=== PATIENT | female | born 1940 | race Caucasian/White ===

== ENCOUNTER 2017-01-25 09:52 | Inpatient (IN) | payer MEDICARE, OTHER ==
[~2017-01-25 09:52] MED LIST: Ketorolac 30 MG/ML SDV IVPUSH PRN
--- NOTE | 2017-01-25 11:14 | EDM.PDOC ---
ED HPI GENERAL MEDICAL PROBLEM - General Chief Complaint: Abdominal Pain Stated Complaint: SOB Time Seen by Provider: 01/25/17 10:37 Source of Information: Reports: Patient, Family, RN Notes Reviewed History Limitations: Reports: No Limitations - History of Present Illness INITIAL COMMENTS - FREE TEXT/NARRATIVE: The patient states that she developed epigastric pain yesterday, which migrated to the right lower quadrant last night. It is crampy/burning/stabbing in character. She feels better if she is supine, worse if she is walking or coughing. She reports nonbloody diarrhea this morning, but no recent nausea, vomiting, constipation, or urinary symptoms. She has had a subjective fever and felt chills. She states that she took Tylenol around 16:30 yesterday afternoon, last night before going to bed, at 03:30 this morning, and again around 08:30 this morning. The patient has a history of generalized abdominal pain, but, based on her history, it is likely GERD-related, and different than her current symptoms. The patient's last oral solid food was yesterday morning, 01/24/2017. Her last oral liquid was water at 09:30 this morning. The patient's PCP is Dr. April Patel. 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 Middle Abdomen Pain Score (Numeric/FACES): 7 - Related Data Allergies Allergy/AdvReac Type Severity Reaction Status Date / Time oxycodone HCl [From Percocet] Allergy Hives Verified 01/25/17 09:59 Home Meds: Home Meds Hydrochlorothiazide 25 mg PO DAILY 02/14/15 [History] Lisinopril 10 mg PO DAILY 02/14/15 [History] Omeprazole 20 mg PO DAILY 02/14/15 [History] Omeprazole Magnesium [Prilosec Otc] 20 mg PO DAILY 01/25/17 [History] Past Medical History HEENT History: Reports: Impaired Vision Cardiovascular History: Reports: Hypertension Gastrointestinal History: Reports: Cholelithiasis, GERD (untreated), Hiatal Hernia, [employer] SPECIALIST History: Reports: Musculoskeletal History: Reports: Arthritis, Back Pain, Chronic (lumbar DDD) Endocrine/Metabolic History: Reports: Obesity/BMI 30+, Other (See Below) ( Prediabetes) - Past Surgical History HEENT Surgical History: Reports: Cataract Surgery, Oral Surgery (Dental extractions) Neurological Surgical History: Reports: Lumbar Spine (Discectomy and fusion) Musculoskeletal Surgical History: Reports: Hip Replacement (right) Social & Family History - Family History Cardiac: Reports: MA Oncologic: Reports: Colon, Ovarian - Tobacco Use Smoking Status *Q: Former Smoker Years of Tobacco use: 43 Packs/Tins Daily: 1 Packs/Tins Daily Comment: Quit 1999 Second Hand Smoke Exposure: No - Caffeine Use Caffeine Use: Reports: Coffee - Alcohol Use Alcohol Use History: Yes Alcohol Use Frequency: Socially - Recreational Drug Use Recreational Drug Use: No - Living Situation & Occupation Living situation: Reports: , with Spouse Occupation: Retired ED ROS GENERAL - Review of Systems Review Of Systems: See Below Constitutional: Reports: No Symptoms HEENT: Reports: No Symptoms Respiratory: Reports: No Symptoms Cardiovascular: Reports: No Symptoms Endocrine: Reports: No Symptoms GI/Abdominal: Reports: No Symptoms : Reports: No Symptoms Musculoskeletal: Reports: No Symptoms Skin: Reports: No Symptoms Neurological: Reports: No Symptoms Psychiatric: Reports: No Symptoms Hematologic/Lymphatic: Reports: No Symptoms Immunologic: Reports: No Symptoms ED EXAM, GI/ABD - Physical Exam Exam: See Below Exam Limited By: No Limitations General Appearance: Alert, WD/WN, No Apparent Distress Eyes: Bilateral: Normal Appearance, EOMI Ears: Normal External Exam, Hearing Grossly Normal Nose: Normal Inspection, No Blood Throat/Mouth: Normal Inspection, Normal Lips, Normal Voice, No Airway Compromise Head: Atraumatic, Normocephalic Neck: Normal Inspection, Full Range of Motion Respiratory/Chest: No Respiratory Distress, Lungs Clear, Normal Breath Sounds, No Accessory Muscle Use Cardiovascular: Normal Peripheral Pulses, Regular Rate, Rhythm, No Gallop, No JVD, No Murmur, No Rub GI/Abdominal Exam: Normal Bowel Sounds, Soft, No Organomegaly, No Distention, No Abnormal Bruit, No Mass, Tender (Right lower quadrant only. Essentially nontender elsewhere, however, Rovsing sign positive.), Other (Obese). No: Guarding, Rebound (Female) Exam: Deferred Rectal (Female) Exam: Deferred Back Exam: Normal Inspection, Full Range of Motion. No: CVA Tenderness (L), CVA Tenderness (R) Extremities: Normal Inspection, Normal Range of Motion, No Pedal Edema, Normal Capillary Refill Neurological: Alert, Oriented, Normal Cognition, No Motor/Sensory Deficits Psychiatric: Normal Affect Skin Exam: Warm, Dry, Intact, Normal Color, No Rash EKG INTERPRETATION EKG Date: 01/25/17 Time: 14:27 Rhythm: NSR Rate (Beats/Min): 86 [place]: Normal P-Wave: Present QRS: Normal ST-T: Normal QT: Prolonged (QTC 503 ms) Comparison: NA - No Prior EKG Course - Vital Signs Last Recorded V/S: Last Vital Signs Temp 36.2 C 01/25/17 09:59 Pulse 88 01/25/17 09:59 Resp 12 01/25/17 16:06 BP 147/70 H 01/25/17 09:59 Pulse Ox 98 01/25/17 16:06 - Orders/Labs/Meds Orders: Active Orders 24 hr Category Date Time Status Patient Status [ADT] Routine ADT 01/25/17 16:23 Active EKG 12 Lead [EKG Documentation Completion] [RC] URGENT Care 01/25/17 14:15 Active NPO Now [Nothing per Oral Now Diet] [DIET] Diet 01/25/17 Dinner Active Abdomen Pelvis w Cont [CT] Stat Exams 01/25/17 11:12 Taken NS + KCl 20mEq/L [Normal Saline with 20 mEq KCl] 1,000 Med 01/25/17 14:45 Active ml IV ASDIRECTED Sodium Chloride 0.9% [Normal Saline] 1,000 ml Med 01/25/17 11:15 Active IV ASDIRECTED Schedule Procedure [COMM] Timed Oth 01/25/17 17:00 Ordered Medication Orders Sodium Chloride (Normal Saline) 1,000 mls @ 150 mls/hr IV ASDIRECTED [facility] Last Admin: 01/25/17 11:28 Dose: 150 mls/hr Potassium Chloride/Sodium Chloride (Normal Saline With 20 Meq Kcl) 1,000 mls @ 150 mls/hr IV ASDIRECTED [facility] Last Admin: 01/25/17 15:07 Dose: 150 mls/hr Labs: Laboratory Tests 01/25/17 01/25/17 01/25/17 Range/Units 10:05 10:05 11:20 WBC 18.05 H (3.98-10.04) K/mm3 RBC 4.53 (3.98-5.22) M/mm3 Hgb 11.8 (11.2-15.7) gm/L Hct 36.0 (34.1-44.9) % MCV 79.5 (79.4-94.8) fl MCH 26.0 (25.6-32.2) pg MCHC 32.8 (32.2-35.5) g/dl RDW Std Deviation 43.6 (36.4-46.3) fL Plt Count 314 (182-369) K/mm3 MPV 9.3 L (9.4-12.3) fl Neutrophils % (Manual) 92 H (40-60) % Band Neutrophils % 0 (0-10) % Lymphocytes % (Manual) 7 L (20-40) % Atypical Lymphs % 0 % Monocytes % (Manual) 0 L (2-10) % Eosinophils % (Manual) 0 L (0.7-5.8) % Basophils % (Manual) 1 (0.1-1.2) Platelet Estimate Adequate RBC Morph Comment Normal Sodium 131 L (136-145) mEq/L Potassium 3.4 L (3.5-5.1) mEq/L Chloride 96 L (98-107) mEq/L Carbon Dioxide 24 (21-32) mEq/L Anion Gap 14.4 (5-15) BUN 12 (7-18) mg/dL Creatinine 1.0 (0.55-1.02) mg/dL Est Cr Clr Drug Dosing 44.10 mL/min Estimated GFR (MDRD) 54 (>60) mL/min BUN/Creatinine Ratio 12.0 L (14-18) Glucose 172 H (83-115) mg/dL Calcium 9.1 (8.5-10.1) mg/dL Total Bilirubin 0.8 (0.2-1.0) mg/dL AST 23 (15-37) U/L ALT 18 (14-59) U/L Alkaline Phosphatase 56 (46-116) U/L Total Protein 7.3 (6.4-8.2) g/dl Albumin 3.3 L (3.4-5.0) g/dl Globulin 4.0 gm/dL Albumin/Globulin Ratio 0.8 L (1-2) Lipase 130 (73-393) U/L Urine Color Yellow (Yellow) Urine Appearance Clear (Clear) Urine pH 7.5 (5.0-8.0) Ur Specific [place] 1.020 (1.005-1.030) Urine Protein Negative (Negative) Urine Glucose (UA) Negative (Negative) Urine Ketones Negative (Negative) Urine Occult Blood Negative (Negative) Urine Nitrite Negative (Negative) Urine Bilirubin Negative (Negative) Urine Urobilinogen 0.2 (0.2-1.0) Ur Leukocyte Esterase Negative (Negative) Urine RBC 0-5 (0-5) /hpf Urine WBC 0-5 (0-5) /hpf Ur Epithelial Cells 0-5 (0-5) /hpf Urine Bacteria Not seen (FEW) /hpf Urine Mucus Not seen (FEW) /hpf Meds: Medications Generic Name Dose Route Start Last Admin Trade Name Freq PRN Reason Stop Dose Admin Sodium Chloride 1,000 mls @ 150 mls/hr 01/25/17 11:15 01/25/17 11:28 Normal Saline IV 150 mls/hr ASDIRECTED RUPAL Administration Potassium Chloride/Sodium Chloride 1,000 mls @ 150 mls/hr 01/25/17 14:45 15:07 Normal Saline With 20 Meq Kcl IV 150 mls/hr ASDIRECTED RUPAL Administration Discontinued Medications Generic Name Dose Route Start Last Admin Trade Name Freq PRN Reason Stop Dose Admin Diatrizoate Meglum/Diatrizoate Sod 90 ml 01/25/17 12:00 01/25/17 12:18 Gastrografin 37% PO 01/25/17 12:01 90 ml ONETIME ONE Administration Hydromorphone HCl 0.5 mg 01/25/17 11:40 01/25/17 11:47 Dilaudid IVPUSH 01/25/17 11:41 0.5 mg ONETIME ONE Administration Piperacillin Sod/Tazobactam 100 mls @ 200 mls/hr 01/25/17 14:22 01/25/17 14: 31 Sod 4.5 gm/ Sodium Chloride IV 01/25/17 14:51 200 mls/hr ONETIME STA Administration Iopamidol 125 ml 01/25/17 12:00 01/25/17 12:17 Isovue-300 (61%) IVPUSH 01/25/17 12:01 125 ml ONETIME ONE Administration Ondansetron HCl 4 mg 01/25/17 11:40 01/25/17 11:50 Zofran IVPUSH 01/25/17 11:41 4 mg ONETIME ONE Administration Sodium Chloride 10 ml 01/25/17 12:00 01/25/17 12:18 Saline Flush FLUSH 01/25/17 12:01 10 ml ONETIME ONE Administration - Re-Assessments/Exams Free Text/Narrative Re-Assessment/Exam: 01/25/17 11:13 The patient declined an offer for both pain medication and antinausea medication at this time. 01/25/17 11:41 The patient requested pain medication. I have ordered Dilaudid 0.5 mg IVP and Zofran 4 mg IVP. 01/25/17 13:12 CT of the abdomen and pelvis with oral and IV contrast is read by [facility] as: Findings consistent with acute appendicitis. No abscess. Dilated loops of small bowel throughout the abdomen, likely representing a reactive ileus rather than obstruction. Large hiatal hernia. Colonic diverticulosis. 01/25/17 13:[address] Armenta at 13:12. He stated that he is pulling into the parking lot at this time, and will see the patient shortly. 01/25/17 14:19 The patient has been evaluated by Dr. Armenta, who anticipates taking the patient to the operating room at 17:00. He would like the patient to remain here in the ED until then. He would like us to start IV Zosyn, which has been ordered. Departure - Departure Time of Disposition: 14:20 Disposition: DC/Tfer to [facility] Condition: Fair Clinical Impression: Acute appendicitis - Discharge Information - My Orders Last 24 Hours: My Active Orders 01/25/17 11:12 Abdomen Pelvis w Cont [CT] Stat 01/25/17 11:15 Sodium Chloride 0.9% [Normal Saline] 1,000 ml IV ASDIRECTED - Assessment/Plan Last 24 Hours: My Active Orders 01/25/17 11:12 Abdomen Pelvis w Cont [CT] Stat 01/25/17 11:15 Sodium Chloride 0.9% [Normal Saline] 1,000 ml IV ASDIRECTED
[2017-01-25] MEDS ORDERED: Sodium Chloride 0.9% 1,000 ML IV SCH (11:15)
[2017-01-25] MEDS ORDERED: HYDROmorphone 0.5 MG/0.5 ML Syringe IVPUSH ONE (11:40)
[2017-01-25] MEDS ORDERED: Ondansetron 4 MG/2 ML SDV IVPUSH ONE (11:40)
[2017-01-25] MEDS ORDERED: Diatrizoate Meglumine/Diatrizoate Sodium 37% 120 ML Bottle PO ONE (12:00)
[2017-01-25] MEDS ORDERED: Sodium Chloride 0.9% 10 ML Syringe FLUSH ONE (12:00)
[2017-01-25] MEDS ORDERED: Iopamidol 612 MG/ML 150 ML Bottle IVPUSH ONE (12:00)
[2017-01-25] MEDS ORDERED: Piperacillin/Tazobactam 3.375 GM in Sodium Chloride 0.9% 100 ML IV ONE (14:08)
[2017-01-25] MEDS ORDERED: Sodium Chloride 0.45% with KCl 1,000 ML IV SCH (14:15)
[2017-01-25] MEDS ORDERED: Piperacillin/Tazobactam 4.5 GM in Sodium Chloride 0.9% 100 ML IV STA (14:22)
[2017-01-25] MEDS ORDERED: NS + KCl 20mEq/L 1,000 ML IV SCH (14:45)
--- NOTE | 2017-01-25 15:49 | HP ---
DATE OF ADMISSION: 01/25/2017 CHIEF COMPLAINT: Abdominal pain of 2 day's duration. HISTORY OF PRESENT ILLNESS: This 76-year-old patient, who has enjoyed basically good health, with the exception of having a total hip procedure done and some back surgery in the past, presents with a 2-day history of the increasing abdominal pain, mostly starting out in the epigastrium, then spreading throughout the abdomen, and finally settling this morning in the right lower quadrant. It hurts when she walks, sneezes, or coughs. She came to the emergency room where an examination showed a CBC with a white count of 18,000. She was brought to the CT scan and this demonstrates acute appendicitis, a 12 mm diameter appendix in the right lower quadrant. The patient has had the procedure explained to her as well as the scope, risks, nature, and benefits of the procedure and she agrees to an open appendectomy. Since she had oral contrast that lasted about 1300 hours today, we will wait till about 1700 hours to do her surgery. Procedure has been explained to her and the family and they are in agreement. PAST MEDICAL HISTORY: She is allergic to oxycodone and Percocet. CURRENT MEDICATIONS: At home consist of hydrochlorothiazide for her blood pressure as well as lisinopril, but she does not take that all the time. SOCIAL HISTORY: She is the mother of, I believe, 8 children, multiple grandchildren, and has basically enjoyed good health with no major problems. PHYSICAL EXAMINATION: GENERAL: Reveals a normotensive, mildly obese, female in no acute distress, lying down. HER EYES, EARS, NOSE, AND THROAT: Unremarkable. No scleral icterus. Oropharynx is clear. NECK: Supple. CHEST: Clear to auscultation. HEART: Rhythm is regular. No murmurs are heard. ABDOMEN: Soft with occasional bowel sound here and there, and she has marked tenderness in the right lower quadrant just above the inguinal ligament. RECTAL: Not performed in lieu of the CT scan, the rectal area appears to be normal. EXTREMITIES: Reveal full peripheral pulses. No edema. No varicosities. NEUROLOGIC: Intact to gross exam. ASSESSMENT: At this point is acute appendicitis. The patient is admitted at this time for an open appendectomy. MMODAL /[id number] MTDJeannie
--- NOTE | 2017-01-25 15:59 | PCM.PREANE ---
Preanesthetic Assessment - Procedure Proposed Procedure: Open appendectomy - Anesthesia/Transfusion/Family Hx Anesthesia History: Prior Anesthesia Without Reaction Family History of Anesthesia Reaction: No Transfusion History: Prior Transfusion Without Reaction Type of Transfusion Reactions: Reports: Unknown - Review of Systems General: No Symptoms Pulmonary: No Symptoms Cardiovascular: Other (HTN) Gastrointestinal: Abdominal Pain, Diarrhea, Nausea, Other (GERD) Neurological: No Symptoms Other: Reports: Diabetes (prediabetes ) - Physical Assessment NPO Status Date: 01/25/17 NPO Status Time: 12:15 O2 Sat by Pulse Oximetry: 98 Respiratory Rate: 12 Vital Signs: Last Vital Signs Temp 36.2 C 01/25/17 09:59 Pulse 88 01/25/17 09:59 Resp 12 01/25/17 09:59 BP 147/70 H 01/25/17 09:59 Pulse Ox 98 01/25/17 09:59 Height: 1.68 m Weight: 89.358 kg ASA Class: 2 Mental Status: Alert & Oriented x3 Airway Class: Mallampati = 1 Dentition: Reports: Dentures (upper and lower ) Thyro-Mental Finger Breadths: 3 Mouth Opening Finger Breadths: 3 ROM/Head Extension: Full Lungs: Clear to Auscultation, Normal Respiratory Effort Cardiovascular: Regular Rate, Regular Rhythm - Lab Values: Laboratory Last Values WBC 18.05 K/mm3 (3.98-10.04) H 01/25/17 10:05 RBC 4.53 M/mm3 (3.98-5.22) 01/25/17 10:05 Hgb 11.8 gm/L (11.2-15.7) 01/25/17 10:05 Hct 36.0 % (34.1-44.9) 01/25/17 10:05 MCV 79.5 fl (79.4-94.8) 01/25/17 10:05 MCH 26.0 pg (25.6-32.2) 01/25/17 10:05 MCHC 32.8 g/dl (32.2-35.5) 01/25/17 10:05 RDW Std Deviation 43.6 fL (36.4-46.3) 01/25/17 10:05 Plt Count 314 K/mm3 (182-369) 01/25/17 10:05 MPV 9.3 fl (9.4-12.3) L 01/25/17 10:05 Neutrophils % (Manual) 92 % (40-60) H 01/25/17 10:05 Band Neutrophils % 0 % (0-10) 01/25/17 10:05 Lymphocytes % (Manual) 7 % (20-40) L 01/25/17 10:05 Atypical Lymphs % 0 % 01/25/17 10:05 Monocytes % (Manual) 0 % (2-10) L 01/25/17 10:05 Eosinophils % (Manual) 0 % (0.7-5.8) L 01/25/17 10:05 Basophils % (Manual) 1 (0.1-1.2) 01/25/17 10:05 Platelet Estimate Adequate 01/25/17 10:05 RBC Morph Comment Normal 01/25/17 10:05 Sodium 131 mEq/L (136-145) L 01/25/17 10:05 Potassium 3.4 mEq/L (3.5-5.1) L 01/25/17 10:05 Chloride 96 mEq/L (98-107) L 01/25/17 10:05 Carbon Dioxide 24 mEq/L (21-32) 01/25/17 10:05 Anion Gap 14.4 (5-15) 01/25/17 10:05 BUN 12 mg/dL (7-18) 01/25/17 10:05 Creatinine 1.0 mg/dL (0.55-1.02) 01/25/17 10:05 Est Cr Clr Drug Dosing 44.10 mL/min 01/25/17 10:05 Estimated GFR (MDRD) 54 mL/min (>60) 01/25/17 10:05 BUN/Creatinine Ratio 12.0 (14-18) L 01/25/17 10:05 Glucose 172 mg/dL (83-115) H 01/25/17 10:05 Calcium 9.1 mg/dL (8.5-10.1) 01/25/17 10:05 Total Bilirubin 0.8 mg/dL (0.2-1.0) 01/25/17 10:05 AST 23 U/L (15-37) 01/25/17 10:05 ALT 18 U/L (14-59) 01/25/17 10:05 Alkaline Phosphatase 56 U/L (46-116) 01/25/17 10:05 Total Protein 7.3 g/dl (6.4-8.2) 01/25/17 10:05 Albumin 3.3 g/dl (3.4-5.0) L 01/25/17 10:05 Globulin 4.0 gm/dL 01/25/17 10:05 Albumin/Globulin Ratio 0.8 (1-2) L 01/25/17 10:05 Lipase 130 U/L (73-393) 01/25/17 10:05 Urine Color Yellow (Yellow) 01/25/17 11:20 Urine Appearance Clear (Clear) 01/25/17 11:20 Urine pH 7.5 (5.0-8.0) 01/25/17 11:20 Ur Specific [place] 1.020 (1.005-1.030) 01/25/17 11:20 Urine Protein Negative (Negative) 01/25/17 11:20 Urine Glucose (UA) Negative (Negative) 01/25/17 11:20 Urine Ketones Negative (Negative) 01/25/17 11:20 Urine Occult Blood Negative (Negative) 01/25/17 11:20 Urine Nitrite Negative (Negative) 01/25/17 11:20 Urine Bilirubin Negative (Negative) 01/25/17 11:20 Urine Urobilinogen 0.2 (0.2-1.0) 01/25/17 11:20 Ur Leukocyte Esterase Negative (Negative) 01/25/17 11:20 Urine RBC 0-5 /hpf (0-5) 01/25/17 11:20 Urine WBC 0-5 /hpf (0-5) 01/25/17 11:20 Ur Epithelial Cells 0-5 /hpf (0-5) 01/25/17 11:20 Urine Bacteria Not seen /hpf (FEW) 01/25/17 11:20 Urine Mucus Not seen /hpf (FEW) 01/25/17 11:20 - Allergies Allergies/Adverse Reactions: Allergies Allergy/AdvReac Type Severity Reaction Status Date / Time oxycodone HCl [From Percocet] Allergy Hives Verified 01/25/17 09:59 - Blood Blood Available: No Product(s) Available: None - Anesthesia Plan Pre-Op Medication Ordered: None - Acknowledgements Anesthesia Type Planned: General Anesthesia Pt an Appropriate Candidate for the Planned Anesthesia: Yes Alternatives and Risks of Anesthesia Discussed w Pt/Guardian: Yes Pt/Guardian Understands and Agrees with Anesthesia Plan: Yes PreAnesthesia Questionnaire HEENT History: Reports: Impaired Vision Cardiovascular History: Reports: Hypertension Gastrointestinal History: Reports: Cholelithiasis, GERD (untreated), Hiatal Hernia, [employer]ER History: Reports: Musculoskeletal History: Reports: Arthritis, Back Pain, Chronic (lumbar DDD) Endocrine/Metabolic History: Reports: Obesity/BMI 30+, Other (See Below) ( Prediabetes) - Past Surgical History HEENT Surgical History: Reports: Cataract Surgery, Oral Surgery (Dental extractions) Neurological Surgical History: Reports: Lumbar Spine (Discectomy and fusion) Musculoskeletal Surgical History: Reports: Hip Replacement (right) - SUBSTANCE USE Smoking Status *Q: Former Smoker Second Hand Smoke Exposure: No Recreational Drug Use History: No - HOME MEDS Home Medications: Home Meds Hydrochlorothiazide 25 mg PO DAILY 02/14/15 [History] Lisinopril 10 mg PO DAILY 02/14/15 [History] Omeprazole 20 mg PO DAILY 02/14/15 [History] Omeprazole Magnesium [Prilosec Otc] 20 mg PO DAILY 01/25/17 [History] - CURRENT (IN HOUSE) MEDS Current Meds: Current Medications Sodium Chloride (Normal Saline) 1,000 mls @ 150 mls/hr IV ASDIRECTED [facility] Last Admin: 01/25/17 11:28 Dose: 150 mls/hr Potassium Chloride/Sodium Chloride (Normal Saline With 20 Meq Kcl) 1,000 mls @ 150 mls/hr IV ASDIRECTED [facility] Last Admin: 01/25/17 15:07 Dose: 150 mls/hr Discontinued Medications Diatrizoate Meglum/Diatrizoate Sod (Gastrografin 37%) 90 ml PO ONETIME ONE Stop: 01/25/17 12:01 Last Admin: 01/25/17 12:18 Dose: 90 ml Hydromorphone HCl (Dilaudid) 0.5 mg IVPUSH ONETIME ONE Stop: 01/25/17 11:41 Last Admin: 01/25/17 11:47 Dose: 0.5 mg Piperacillin Sod/Tazobactam (Sod 4.5 gm/ Sodium Chloride) 100 mls @ 200 mls/hr IV ONETIME STA Stop: 01/25/17 14:51 Last Admin: 01/25/17 14:31 Dose: 200 mls/hr Iopamidol (Isovue-300 (61%)) 125 ml IVPUSH ONETIME ONE Stop: 01/25/17 12:01 Last Admin: 01/25/17 12:17 Dose: 125 ml Ondansetron HCl (Zofran) 4 mg IVPUSH ONETIME ONE Stop: 01/25/17 11:41 Last Admin: 01/25/17 11:50 Dose: 4 mg Sodium Chloride (Saline Flush) 10 ml FLUSH ONETIME ONE Stop: 01/25/17 12:01 Last Admin: 01/25/17 12:18 Dose: 10 ml
[2017-01-25] MEDS ORDERED: Bupivacaine 0.25%/EPINEPHrine 1:200,000 30 ML SDV ONE (16:27)
[2017-01-25] MEDS ORDERED: Lidocaine 1% 30 ML SDV ONE (16:27)
[2017-01-25] MEDS ORDERED: Propofol 200 MG/20 ML SDV ONE (16:57)
[2017-01-25] MEDS ORDERED: fentaNYL 250 MCG/5 ML SDV ONE (16:57)
[2017-01-25] MEDS ORDERED: ePHEDrine 50 MG/ML SDV ONE (17:17)
[2017-01-25] MEDS ORDERED: Dexamethasone 4 MG/ML 5 ML MDV ONE (17:33)
[2017-01-25] MEDS ORDERED: Ondansetron 4 MG/2 ML SDV ONE (17:33)
[2017-01-25] MEDS ORDERED: Rocuronium 50 MG/5 ML Vial ONE (17:33)
[2017-01-25] MEDS ORDERED: Lidocaine 1% 4 ML ONE (17:33)
[2017-01-25] MEDS ORDERED: diphenhydrAMINE 50 MG/ML SDV IVPUSH PRN (17:48)
[2017-01-25] MEDS ORDERED: fentaNYL 100 MCG/2 ML SDV IVPUSH PRN (17:48)
[2017-01-25] MEDS ORDERED: HYDROmorphone 0.5 MG/0.5 ML Syringe IVPUSH PRN (17:48)
[2017-01-25] MEDS ORDERED: Meperidine PF 50 MG/ML Syringe IVPUSH PRN (17:48)
[2017-01-25] MEDS ORDERED: Promethazine 6.25 MG in Sodium Chloride 0.9% 50 ML IV PRN (17:48)
[2017-01-25] MEDS ORDERED: Neostigmine Methylsulfate 1 MG/ML 5 ML Syringe ONE (18:07)
[2017-01-25] MEDS ORDERED: Lactated Ringers 1,000 ML ONE (18:33)
--- NOTE | 2017-01-25 18:33 | PCM.POSTAN ---
POST ANESTHESIA ASSESSMENT - MENTAL STATUS Mental Status: Alert, Oriented - VITAL SIGNS Pulse Rate: 96 SaO2: 93 Resp Rate: 14 Blood Pressure: 127/71 Temperature: 37.8 C - RESPIRATORY Respiratory Status: Respiratory Rate WNL, Airway Patent, O2 Saturation Stable - CARDIOVASCULAR CV Status: Pulse Rate WNL, Blood Pressure Stable - GASTROINTESTINAL GI Status: No Symptoms - PAIN Pain Score: 0 - POST OP HYDRATION Hydration Status: Adequate & Stable
[2017-01-25] MEDS ORDERED: POTASSIUM CHLORIDE IV SCH ×2 (18:42)
[2017-01-25] MEDS ORDERED: [UNRECOGNIZED DRUG - OTHER] IV SCH ×2 (18:42)
[2017-01-25] MEDS ORDERED: DEXTROSE IV SCH ×2 (18:42)
[2017-01-25] MEDS ORDERED: SODIUM CHLORIDE IV SCH ×2 (18:42)
[2017-01-25] MEDS ORDERED: Piperacillin/Tazobactam 4.5 GM in Sodium Chloride 0.9% 100 ML IV ONE (19:00)
[2017-01-25] MEDS ORDERED: Piperacillin/Tazobactam 4.5 GM in Sodium Chloride 0.9% 100 ML IV SCH (19:00)
[2017-01-25] MEDS ORDERED: D5 1/2 NS w/ 10 mEq/L KCl 1,000 ML ONE (20:47)
[2017-01-25] MEDS: D5 1/2 NS w/ 10 mEq/L KCl 1,000 ML IV SCH (20:55)
[2017-01-25] MEDS: Piperacillin/Tazobactam 4.5 GM in Sodium Chloride 0.9% 100 ML IV SCH ×3 (20:55→21:48)
[2017-01-25] MEDS: Morphine 4 MG/ML Syringe IVPUSH PRN (21:12)
[2017-01-25] MEDS ORDERED: D5 1/2 NS w/ 20 mEq/L KCl 1,000 ML IV SCH (21:45)
[2017-01-26] MEDS: Ketorolac 30 MG/ML SDV IVPUSH SCH ×5 (00:07→23:45)
--- NOTE | 2017-01-26 00:24 | OR ---
DATE OF OPERATION: 01/25/2017 SURGEON: Riley Armenta ANESTHESIOLOGIST: Anthony Porter CRNA. PREOPERATIVE DIAGNOSIS: Acute appendicitis. POSTOPERATIVE DIAGNOSIS: Acute appendicitis. OPERATION PERFORMED: Open appendectomy. DESCRIPTION OF PROCEDURE: Under satisfactory general anesthesia with good relaxation, the patient's abdomen was prepped and draped into a sterile field. Three minutes was allowed for the prep to dry, the area was then draped and the incision was marked and infiltrated with a mixture of 1% Xylocaine with 0.25% Marcaine with epinephrine 50:50 solution. This having been achieved, the skin was incised and parted bluntly down to the external oblique fascia, which was then divided in the course of its fibers and then the internal oblique was similarly divided in the course of its fibers. The transversus abdominis tendon was divided exposing the peritoneum and this was incised. At this point, a moderate amount of cloudy fluid extruded from the small incision in the inside of the peritoneum and this was cultured. The incision was enlarged and the cecum was visualized. The wound was enlarged slightly laterally in the fascia level to allow mobilization of the cecum and the small bowel and with this the appendix was brought up with the tip of the cecum and the mesoappendix was clamped and doubly ligated with 2- 0 Vicryl suture. This allowed the appendix to be brought up into the operative field as well as the appendiceal cecal junction and at that point, the blue cartridge RED stapler was discharged and the appendix was severed from the cecal tip. There was minimal bleeding from the suture line. The specimen was submitted to the pathologist for examination. The area was then irrigated with saline solution and the wound was closed in layers respectively with 2-0 PDS suture, one for each layer and the subcu was then irrigated copiously with saline and the Edmar's fascia was approximated with interrupted 2-0 PDS and the skin was closed with 4-0 Vicryl subcuticular suture and Steri-Strips. Dressings were applied. The patient tolerated the procedure well and returned to the recovery area in good condition. ANESTHESIA:General, ET ESTIMATED BLOOD LOSS: 25cc MMODAL /[id number] [facility]NING HOSPITALJeannie
[2017-01-26] MEDS: Morphine 4 MG/ML Syringe IVPUSH PRN ×2 (02:21→16:02)
[2017-01-26] MEDS: Piperacillin/Tazobactam 4.5 GM in Sodium Chloride 0.9% 100 ML IV SCH ×3 (02:23→20:05)
[2017-01-26] MEDS: D5 1/2 NS w/ 10 mEq/L KCl 1,000 ML IV SCH ×3 (04:55→21:16)
[2017-01-26] MEDS: Pantoprazole 40 MG Tab.CR PO SCH ×2 (05:12→08:04)
--- NOTE | 2017-01-26 07:16 | CT ---
CT abdomen and pelvis Technique: Multiple axial sections were obtained from above the dome of the diaphragm inferiorly through the pubic symphysis. Intravenous contrast was utilized. Oral contrast is seen. Comparison: Previous CT abdomen and pelvis exam of 10/18/15. Findings: Appendix is dilated and contains an appendicolith. Mild inflammatory changes seen off the appendix. Findings are felt compatible with appendicitis. There is mild bowel wall thickening seen within the terminal ileum possibly reactive from the appendicitis. No free fluid is seen. Large hiatal hernia is seen. This finding is similar to prior study. Liver shows no focal abnormality. Calcified gallbladder wall is seen. This is stable from previous study. Adrenal glands show no nodule. Spleen appears within normal limits. Kidneys show symmetric contrast enhancement without hydronephrosis or mass. Aorta shows atherosclerotic change which continues into the iliac vessels without aneurysm. No retroperitoneal adenopathy or mesenteric abnormalities are seen. Pancreas appears within normal limits. No mesenteric abnormalities noted. Mildly dilated small bowel is seen most likely representing ileus. Varicosities are seen within the anterior abdominal wall within the lower pelvis which are a chronic finding. Incidental scattered colonic diverticuli. Degenerative change and previous spine surgery is noted. Impression: 1. Findings compatible with appendicitis as described above. 2. Bowel wall thickening within the terminal ileum possibly reactive from the appendicitis. 3. Mildly dilated small bowel loops most likely representing ileus. 4. Other incidental findings as noted above which are stable from prior CT exam. Diagnostic code #5 I agree with preliminary report issued by [employer] ([facility] report finalized on 01/25/17, 1:44 PM Central Time)
--- NOTE | 2017-01-26 10:54 | PN ---
DATE OF SERVICE: 01/26/2017 This is Katie's first postop day following removal of an early perforated appendix last evening. It was an open appendectomy. The purulent material that sprang forth when the peritoneum was opened, was cultured, and today it appears to be mostly cocci and many white blood cells. The patient had been started on Zosyn before that and because of this essentially early perforation, she should probably have 48 hours worth of very good IV antibiotics, and she is on that now with Zosyn every 8 hours, 4.5 grams. She is tolerating that well. She complains much of heartburn as one would normally postop, because of mild ileus and so we are going to start her on some antacids for that orally and also probably some Prilosec once a day. Her abdomen is soft. The dressing is dry. Her bowel sounds are present. She generally feels good and will need to be kept for at least 1 more day for the antibiotics and, hopefully, can be discharged either tomorrow or the following day. She is 76 years old, although the years have been good to her, she is still elderly and, I am afraid, little on the frail side. Otherwise, she is afebrile and is starting to tolerate a diet. ALIA /[id number]
[2017-01-26] MEDS: Aspirin 81 MG Tab.Chew PO SCH (11:21)
[2017-01-26] MEDS: Aluminum Hydroxide/Magnesium Hydroxide/Simethicone Susp 30 ML Cup PO PRN ×3 (12:35→21:15)
[2017-01-27] MEDS: Piperacillin/Tazobactam 4.5 GM in Sodium Chloride 0.9% 100 ML IV SCH (03:14)
[2017-01-27] MEDS: Ketorolac 30 MG/ML SDV IVPUSH SCH ×2 (06:28→12:59)
[2017-01-27] MEDS: Pantoprazole 40 MG Tab.CR PO SCH (06:28)
[2017-01-27] MEDS: Aspirin 81 MG Tab.Chew PO SCH (09:23)
[2017-01-27] MEDS: Acetaminophen 325 MG Tab PO PRN ×2 (09:24→21:38)
[2017-01-27] MEDS: Lisinopril 10 MG Tab PO SCH (09:24)
[2017-01-27] MEDS: Enoxaparin 40 MG/0.4 ML Syringe SUBCUT SCH (09:26)
[2017-01-27] MEDS: Piperacillin/Tazobactam 4.5 GM in Dextrose 5% in Water 100 ML IV SCH ×4 (11:22→19:28)
--- NOTE | 2017-01-27 14:24 | PCM.CONSN ---
- General Info Date of Service: 01/27/17 - Patient Data Vitals - Most Recent: Last Vital Signs Temp 97.5 F 01/27/17 12:20 Pulse 74 01/27/17 12:20 Resp 18 01/27/17 12:20 BP 124/95 H 01/27/17 12:20 Pulse Ox 97 01/27/17 12:20 Weight - Most Recent: 95.436 kg I&O - Last 24 Hours: Intake & Output 01/26/17 01/27/17 01/27/17 23:59 07:59 15:59 Intake Total 0 1856 420 Output Total 100 Balance 0 1756 420 Lab Results Last 24 Hours: Laboratory Results - last 24 hr 01/27/17 01/27/17 Range/Units 09:15 09:15 WBC 12.56 H (3.98-10.04) K/mm3 RBC 3.87 L (3.98-5.22) M/mm3 Hgb 10.1 L (11.2-15.7) gm/L Hct 31.4 L (34.1-44.9) % MCV 81.1 (79.4-94.8) fl MCH 26.1 (25.6-32.2) pg MCHC 32.2 (32.2-35.5) g/dl RDW Std Deviation 43.5 (36.4-46.3) fL Plt Count 288 (182-369) K/mm3 MPV 8.5 L (9.4-12.3) fl Neut % (Auto) 79.2 H (34.0-71.1) % Lymph % (Auto) 11.3 L (19.3-51.7) % [place] % (Auto) 7.6 (4.7-12.5) % Eos % (Auto) 1.6 (0.7-5.8) Baso % (Auto) 0.1 (0.1-1.2) % Neut # (Auto) 9.96 H (1.56-6.13) K/mm3 Lymph # (Auto) 1.42 (1.18-3.74) K/mm3 [place] # (Auto) 0.95 H (0.24-0.36) K/mm3 Eos # (Auto) 0.20 (0.04-0.36) K/mm3 Baso # (Auto) 0.01 (0.01-0.08) K/mm3 Sodium 134 L (136-145) mEq/L Potassium 3.5 (3.5-5.1) mEq/L Chloride 99 (98-107) mEq/L Carbon Dioxide 25 (21-32) mEq/L Anion Gap 13.5 (5-15) BUN 12 (7-18) mg/dL Creatinine 1.0 (0.55-1.02) mg/dL Est Cr Clr Drug Dosing 44.10 mL/min Estimated GFR (MDRD) 54 (>60) mL/min BUN/Creatinine Ratio 12.0 L (14-18) Glucose 122 H (83-115) mg/dL Calcium 8.3 L (8.5-10.1) mg/dL Med Orders - Current: Current Medications Acetaminophen (Tylenol) 650 mg PO Q6H PRN PRN Reason: Pain Last Admin: 01/27/17 09:24 Dose: 650 mg Hydrocodone Bitart/Acetaminophen ([place] 325-5 Mg) 1 tab PO Q6H PRN PRN Reason: Pain Al Hydroxide/Mg Hydroxide (Mag-Al Plus) 30 ml PO Q2H PRN PRN Reason: heart burn Last Admin: 01/26/17 21:15 Dose: 30 ml Aspirin (Aspirin) 81 mg PO DAILY [facility] Last Admin: 01/27/17 09:23 Dose: 81 mg Enoxaparin Sodium (Lovenox) 40 mg SUBCUT DAILY [facility] Last Admin: 01/27/17 09:26 Dose: 40 mg Piperacillin Sod/Tazobactam (Sod 4.5 gm/ Dextrose/Water) 100 mls @ 25 mls/hr IV Q8H [facility] Last Admin: 01/27/17 11:22 Dose: 25 mls/hr Lisinopril (Prinivil) 10 mg PO DAILY [facility] Last Admin: 01/27/17 09:24 Dose: 10 mg Morphine Sulfate (Morphine) 4 mg IVPUSH Q2H PRN PRN Reason: Abdominal Pain Last Admin: 01/26/17 16:02 Dose: 2 mg Pantoprazole Sodium (Protonix) 40 mg PO DAILY@0700 [facility] Last Admin: 01/27/17 06:28 Dose: 40 mg Discontinued Medications Bupivacaine HCl/Epinephrine Bitart (Marcaine 0.25%/Epinephrine 1:200,000) Confirm Administered Dose 30 ml .ROUTE .STK-MED ONE Stop: 01/25/17 16:28 Last Admin: 01/25/17 17:25 Dose: 9.5 ml Dexamethasone (Dexamethasone) Confirm Administered Dose 20 mg .ROUTE .STK-MED ONE Stop: 01/25/17 17:34 Diatrizoate Meglum/Diatrizoate Sod (Gastrografin 37%) 90 ml PO ONETIME ONE Stop: 01/25/17 12:01 Last Admin: 01/25/17 12:18 Dose: 90 ml Diphenhydramine HCl (Benadryl) 25 mg IVPUSH Q6H PRN PRN Reason: Pruritis Ephedrine Sulfate (Ephedrine Sulfate) Confirm Administered Dose 50 mg .ROUTE .STK-MED ONE Stop: 01/25/17 17:18 Fentanyl (Sublimaze) 50 mcg IVPUSH Q5M PRN PRN Reason: Pain Stop: 01/25/17 17:48 Fentanyl (Sublimaze) Confirm Administered Dose 250 mcg .ROUTE .STK-MED ONE Stop: 01/25/17 16:58 Glycopyrrolate () Confirm Administered Dose 1 mg .ROUTE .STK-MED ONE Stop: 01/25/17 18:08 Hydromorphone HCl (Dilaudid) 0.5 mg IVPUSH ONETIME ONE Stop: 01/25/17 11:41 Last Admin: 01/25/17 11:47 Dose: 0.5 mg Hydromorphone HCl (Dilaudid) 0.5 mg IVPUSH Q15M PRN PRN Reason: Pain (severe 7-10) Stop: 01/25/17 18:27 Sodium Chloride (Normal Saline) 1,000 mls @ 150 mls/hr IV ASDIRECTED [facility] Last Admin: 01/25/17 11:28 Dose: 150 mls/hr Piperacillin Sod/Tazobactam (Sod 4.5 gm/ Sodium Chloride) 100 mls @ 200 mls/hr IV ONETIME STA Stop: 01/25/17 14:51 Last Admin: 01/25/17 14:31 Dose: 200 mls/hr Potassium Chloride/Sodium Chloride (Normal Saline With 20 Meq Kcl) 1,000 mls @ 125 mls/hr IV ASDIRECTED [facility] Last Admin: 01/25/17 15:07 Dose: 150 mls/hr Promethazine HCl 6.25 mg/ (Sodium Chloride) 50.25 mls @ 100 mls/hr IV ONETIME PRN PRN Reason: Nausea/Vomiting Piperacillin Sod/Tazobactam (Sod 4.5 gm/ Sodium Chloride) 100 mls @ 200 mls/hr IV ONETIME ONE Stop: 01/25/17 19:29 Piperacillin Sod/Tazobactam (Sod 4.5 gm/ Sodium Chloride) 100 mls @ 25 mls/hr IV Q8H [facility] Last Admin: 01/27/17 03:14 Dose: 25 mls/hr Piperacillin Sod/Tazobactam (Sod 4.5 gm/ Sodium Chloride) 100 mls @ 200 mls/hr IV Q8H [facility] Last Admin: 01/26/17 02:28 Dose: Not Given Potassium Chloride/Dextrose/Sod Cl (D5 1/2 Ns W/ 10 Meq/L Kcl) Confirm Administered Dose 1,000 mls @ as directed .ROUTE .STK-MED ONE Stop: 01/25/17 20:48 Last Admin: 01/25/17 20:55 Dose: 1,000 ml Potassium Chloride/Dextrose/Sod Cl (D5 1/2 Ns W/ 10 Meq/L Kcl) 1,000 mls @ 125 mls/hr IV ASDIRECTED [facility] Last Admin: 01/26/17 21:16 Dose: 125 mls/hr Lidocaine HCl (Xylocaine-Mpf 1%) Confirm Administered Dose 4 mls @ as directed .ROUTE .STK-MED ONE Stop: 01/25/17 17:34 Lactated Ringer's (Ringers, Lactated) Confirm Administered Dose 1,000 mls @ as directed .ROUTE .STK-MED ONE Stop: 01/25/17 18:34 Iopamidol (Isovue-300 (61%)) 125 ml IVPUSH ONETIME ONE Stop: 01/25/17 12:01 Last Admin: 01/25/17 12:17 Dose: 125 ml Ketorolac Tromethamine (Toradol) 30 mg IVPUSH Q6H [facility] Stop: 01/29/17 00:01 Last Admin: 01/27/17 12:59 Dose: Not Given Lidocaine HCl (Xylocaine-Mpf 1%) Confirm Administered Dose 30 ml .ROUTE .STK- MED ONE Stop: 01/25/17 16:28 Last Admin: 01/25/17 17:25 Dose: 9.5 ml Meperidine HCl (Demerol) 12.5 mg IVPUSH ONETIME PRN PRN Reason: Shivering Neostigmine Methylsulfate (Neostigmine) Confirm Administered Dose 5 mg .ROUTE .STK-MED ONE Stop: 01/25/17 18:08 Ondansetron HCl (Zofran) 4 mg IVPUSH ONETIME ONE Stop: 01/25/17 11:41 Last Admin: 01/25/17 11:50 Dose: 4 mg Ondansetron HCl (Zofran) Confirm Administered Dose 4 mg .ROUTE .STK-MED ONE Stop: 01/25/17 17:34 Propofol (Diprivan 20 Ml) Confirm Administered Dose 200 mg .ROUTE .STK-MED ONE Stop: 01/25/17 16:58 Rocuronium [place] (Zemuron) Confirm Administered Dose 50 mg .ROUTE .STK-MED ONE Stop: 01/25/17 17:34 Sodium Chloride (Saline Flush) 10 ml FLUSH ONETIME ONE Stop: 01/25/17 12:01 Last Admin: 01/25/17 12:18 Dose: 10 ml Consult PN Assessment/Plan Procedures: Procedures CATARACT SURG W/IOL 1 STAGE (06/21/15) COMPLETE CBC W/AUTO DIFF WBC (10/18/15) COMPREHEN METABOLIC PANEL (10/18/15) CT ABD & PELV W/CONTRAST (10/18/15) CT MAXILLOFACIAL W/O DYE (10/26/13) CT THORAX W/DYE (10/18/15) DXA BONE DENSITY AXIAL (04/17/15) EMERGENCY DEPT VISIT (10/18/15) HYDRATE IV INFUSION ADD-ON (10/18/15) ROUTINE VENIPUNCTURE (10/18/15) THER/PROPH/DIAG INJ IV PUSH (10/18/15) Problem List Initiated/Reviewed/Updated: Yes My Orders Last 24 Hours: My Active Orders 01/27/17 09:00 Enoxaparin [Lovenox] 40 mg SUBCUT DAILY Lisinopril [Prinivil] 10 mg PO DAILY 01/27/17 09:06 Acetaminophen [Tylenol] 650 mg PO Q6H PRN 01/27/17 14:07 Acetaminophen/HYDROcodone [[place] 325-5 MG] 1 tab PO Q6H PRN 01/27/17 Breakfast [place] [employer] Diet [DIET] Heart Healthy Diet [DIET] Soft Diet [DIET] Plan: surgical consult dictated ABILIO
[2017-01-28] MEDS: Acetaminophen/HYDROcodone 325-5 MG Tab PO PRN ×4 (01:31→20:42)
[2017-01-28] MEDS: Piperacillin/Tazobactam 4.5 GM in Dextrose 5% in Water 100 ML IV SCH ×6 (04:00→18:30)
[2017-01-28] MEDS: Pantoprazole 40 MG Tab.CR PO SCH (06:09)
--- NOTE | 2017-01-28 08:01 | CONS ---
CONSULTING PHYSICIAN: Toi Jorgensen MD DATE OF CONSULTATION: 01/27/2017 HISTORY OF PRESENT ILLNESS: Katie Garland is a 76-year-old, who presented with 2-day history of increasing abdominal pain, mostly in the epigastrium and spreading throughout the abdomen and finally settling in the right lower quadrant. It hurt to walk, cough and sneeze. She came into the emergency room with a CBC of 18,[address] scan demonstrated acute appendicitis and this was done on 01/25. She was brought to the operating room where Dr. Velasco did an open appendectomy and stated there was early appendicitis. The patient has since been placed on antibiotics and given DVT prophylaxis, IV fluids. The patient's course has been that of slow progression improvement. Her temperature has remained in normal range, pulse rate in the 70s and 80s, blood pressure stable, sats 94% on room air, [place] [address] [place] [address]. The patient does report some bloating, some weight gain. I was asked to take over the care for the patient. PAST MEDICAL HISTORY: Hypertension. PAST SURGICAL HISTORY: Recent hip replacement. MEDICATIONS: Per medication reconciliation form. SOCIAL HISTORY: Past history of smoking. She has quit in 1999 and socially drinks. No recreational drugs. ALLERGIES: To Percocet. REVIEW OF SYSTEMS: No chest pain, shortness of breath, cough, hoarseness, wheezing, fainting, weakness, numbness, convulsions. She does have some loose stools and notes abdominal distention. Denies any chest pain. PHYSICAL EXAMINATION: GENERAL: Reveals alert and cooperative female. VITAL SIGNS: Shows temperature 97.5, pulse 74, blood pressure 174/90. EYES: Sclerae white. Extraocular muscle motion normal. ORAL CAVITY: Healthy. NECK: Supple. LUNGS: Clear. No rales, rhonchi, fremitus, or dullness. HEART: Heart tones regular rate. No S3, S4, jugular venous distention. ABDOMEN: Surgical scar in the right lower quadrant. Some distention. Mild incisional tenderness in the right side and no bowel sounds are noted. EXTREMITIES: Moves all 4 extremities. No edema. SKIN: Warm and dry. NEUROLOGIC: Cranial nerves 3 through 12 is intact. She is alert, cooperative, and psychological exam normal. ASSESSMENT: History of hypertension, acute appendicitis, early perforation status post surgery. The patient has some signs of still need to be need hospitalization. Her white count is still up to 12,000. She has gained weight and has not diuresed yet and her abdomen shows some distention and abdomen quiet in spite of her diarrhea suggesting possibility of persistent infection in the abdomen. Recommend that we continue her with IV antibiotics. MMODAL /[id number]
[2017-01-28] MEDS: Enoxaparin 40 MG/0.4 ML Syringe SUBCUT SCH (09:57)
[2017-01-28] MEDS: Lisinopril 10 MG Tab PO SCH (09:58)
[2017-01-28] MEDS: Aspirin 81 MG Tab.Chew PO SCH (09:58)
--- NOTE | 2017-01-28 14:16 | PCM.PN ---
- General Info Date of Service: 01/28/17 Functional Status: Reports: Pain Controlled - Review of Systems General: Reports: No Symptoms Pulmonary: Reports: No Symptoms Cardiovascular: Reports: No Symptoms Gastrointestinal: Reports: No Symptoms - Patient Data Vitals - Most Recent: Last Vital Signs Temp 98.1 F 01/28/17 12:10 Pulse 74 01/28/17 12:10 Resp 18 01/28/17 12:08 BP 121/88 01/28/17 12:08 Pulse Ox 95 01/28/17 12:10 Weight - Most Recent: 93.758 kg I&O - Last 24 Hours: Intake & Output 01/27/17 01/28/17 01/28/17 23:59 07:59 15:59 Intake Total 675 700 120 Output Total 300 Balance 375 700 120 Med Orders - Current: Current Medications Acetaminophen (Tylenol) 650 mg PO Q6H PRN PRN Reason: Pain Last Admin: 01/27/17 21:38 Dose: 650 mg Hydrocodone Bitart/Acetaminophen ([place] 325-5 Mg) 1 tab PO Q6H PRN PRN Reason: Pain Last Admin: 01/28/17 07:38 Dose: 1 tab Al Hydroxide/Mg Hydroxide (Mag-Al Plus) 30 ml PO Q2H PRN PRN Reason: heart burn Last Admin: 01/26/17 21:15 Dose: 30 ml Aspirin (Aspirin) 81 mg PO DAILY [facility]PLACED BY [facility] Last Admin: 01/28/17 09:58 Dose: 81 mg Enoxaparin Sodium (Lovenox) 40 mg SUBCUT DAILY [facility]PL[facility]ED BY [facility] Last Admin: 01/28/17 09:57 Dose: 40 mg Piperacillin Sod/Tazobactam (Sod 4.5 gm/ Dextrose/Water) 100 mls @ 25 mls/hr IV Q8H [facility]PL[facility]ED BY [facility] Last Admin: 01/28/17 11:12 Dose: 25 mls/hr Lisinopril (Prinivil) 10 mg PO DAILY [facility] Last Admin: 01/28/17 09:58 Dose: 10 mg Morphine Sulfate (Morphine) 4 mg IVPUSH Q2H PRN PRN Reason: Abdominal Pain Last Admin: 01/26/17 16:02 Dose: 2 mg Pantoprazole Sodium (Protonix) 40 mg PO DAILY@0700 [facility]PL[facility]ED [facility] Last Admin: 01/28/17 06:09 Dose: 40 mg Discontinued Medications Bupivacaine HCl/Epinephrine Bitart ([place] 0.25%/Epinephrine 1:200,000) Confirm Administered Dose 30 ml .ROUTE .STK-MED ONE Stop: 01/25/17 16:28 Last Admin: 01/25/17 17:25 Dose: 9.5 ml Dexamethasone (Dexamethasone) Confirm Administered Dose 20 mg .ROUTE .STK-MED ONE Stop: 01/25/17 17:34 Diatrizoate Meglum/Diatrizoate Sod (Gastrografin 37%) 90 ml PO ONETIME ONE Stop: 01/25/17 12:01 Last Admin: 01/25/17 12:18 Dose: 90 ml Diphenhydramine HCl (Benadryl) 25 mg IVPUSH Q6H PRN PRN Reason: Pruritis Ephedrine Sulfate (Ephedrine Sulfate) Confirm Administered Dose 50 mg .ROUTE .STK-MED ONE Stop: 01/25/17 17:18 Fentanyl (Sublimaze) 50 mcg IVPUSH Q5M PRN PRN Reason: Pain Stop: 01/25/17 17:48 Fentanyl (Sublimaze) Confirm Administered Dose 250 mcg .ROUTE .STK-MED ONE Stop: 01/25/17 16:58 Glycopyrrolate () Confirm Administered Dose 1 mg .ROUTE .STK-MED ONE Stop: 01/25/17 18:08 Hydromorphone HCl (Dilaudid) 0.5 mg IVPUSH ONETIME ONE Stop: 01/25/17 11:41 Last Admin: 01/25/17 11:47 Dose: 0.5 mg Hydromorphone HCl (Dilaudid) 0.5 mg IVPUSH Q15M PRN PRN Reason: Pain (severe 7-10) Stop: 01/25/17 18:27 Sodium Chloride (Normal Saline) 1,000 mls @ 150 mls/hr IV ASDIRECTED REPLACED BY [facility] Last Admin: 01/25/17 11:28 Dose: 150 mls/hr Piperacillin Sod/Tazobactam (Sod 4.5 gm/ Sodium Chloride) 100 mls @ 200 mls/hr IV ONETIME STA Stop: 01/25/17 14:51 Last Admin: 01/25/17 14:31 Dose: 200 mls/hr Potassium Chloride/Sodium Chloride (Normal Saline With 20 Meq Kcl) 1,000 mls @ 125 mls/hr IV ASDIRECTED REPLACED BY [facility] Last Admin: 01/25/17 15:07 Dose: 150 mls/hr Promethazine HCl 6.25 mg/ (Sodium Chloride) 50.25 mls @ 100 mls/hr IV ONETIME PRN PRN Reason: Nausea/Vomiting Piperacillin Sod/Tazobactam (Sod 4.5 gm/ Sodium Chloride) 100 mls @ 200 mls/hr IV ONETIME ONE Stop: 01/25/17 19:29 Piperacillin Sod/Tazobactam (Sod 4.5 gm/ Sodium Chloride) 100 mls @ 25 mls/hr IV Q8H REPL[facility]ED [facility] Last Admin: 01/27/17 03:14 Dose: 25 mls/hr Piperacillin Sod/Tazobactam (Sod 4.5 gm/ Sodium Chloride) 100 mls @ 200 mls/hr IV Q8H REPLACED BY [facility] Last Admin: 01/26/17 02:28 Dose: Not Given Potassium Chloride/Dextrose/Sod Cl (D5 1/2 Ns W/ 10 Meq/L Kcl) Confirm Administered Dose 1,000 mls @ as directed .ROUTE .STK-MED ONE Stop: 01/25/17 20:48 Last Admin: 01/25/17 20:55 Dose: 1,000 ml Potassium Chloride/Dextrose/Sod Cl (D5 1/2 Ns W/ 10 Meq/L Kcl) 1,000 mls @ 125 mls/hr IV ASDIRECTED REPLACED BY [facility] Last Admin: 01/26/17 21:16 Dose: 125 mls/hr Lidocaine HCl (Xylocaine-Mpf 1%) Confirm Administered Dose 4 mls @ as directed .ROUTE .STK-MED ONE Stop: 01/25/17 17:34 Lactated Ringer's (Ringers, Lactated) Confirm Administered Dose 1,000 mls @ as directed .ROUTE .STK-MED ONE Stop: 01/25/17 18:34 Iopamidol (Isovue-300 (61%)) 125 ml IVPUSH ONETIME ONE Stop: 01/25/17 12:01 Last Admin: 01/25/17 12:17 Dose: 125 ml Ketorolac Tromethamine (Toradol) 30 mg IVPUSH Q6H REPLACED BY [facility] Stop: 01/29/17 00:01 Last Admin: 01/27/17 12:59 Dose: Not Given Lidocaine HCl (Xylocaine-Mpf 1%) Confirm Administered Dose 30 ml .ROUTE .STK- MED ONE Stop: 01/25/17 16:28 Last Admin: 01/25/17 17:25 Dose: 9.5 ml Meperidine HCl (Demerol) 12.5 mg IVPUSH ONETIME PRN PRN Reason: Shivering Neostigmine Methylsulfate (Neostigmine) Confirm Administered Dose 5 mg .ROUTE .STK-MED ONE Stop: 01/25/17 18:08 Ondansetron HCl (Zofran) 4 mg IVPUSH ONETIME ONE Stop: 01/25/17 11:41 Last Admin: 01/25/17 11:50 Dose: 4 mg Ondansetron HCl (Zofran) Confirm Administered Dose 4 mg .ROUTE .STK-MED ONE Stop: 01/25/17 17:34 Propofol (Diprivan 20 Ml) Confirm Administered Dose 200 mg .ROUTE .STK-MED ONE Stop: 01/25/17 16:58 Rocuronium [place] (Zemuron) Confirm Administered Dose 50 mg .ROUTE .STK-MED ONE Stop: 01/25/17 17:34 Sodium Chloride (Saline Flush) 10 ml FLUSH ONETIME ONE Stop: 01/25/17 12:01 Last Admin: 01/25/17 12:18 Dose: 10 ml - Exam General: Alert, Oriented Neck: Supple Lungs: Clear to Auscultation, Normal Respiratory Effort Cardiovascular: Regular Rate, Regular Rhythm GI/Abdominal Exam: Normal Bowel Sounds, Soft, Non-Tender, No Organomegaly, No Distention, No Abnormal Bruit, No Mass, Pelvis Stable - Problem List Review Problem List Initiated/Reviewed/Updated: Yes - My Orders Last 24 Hours: My Active Orders 01/27/17 14:07 Acetaminophen/HYDROcodone [[place] 325-5 MG] 1 tab PO Q6H PRN - Plan Plan:: pt improving disposition she feels better and tolerating diet VS stable exam wound healed ass ruptured appendix plan continue with IV antibiotic and check wbc tomorrow \
[2017-01-29] MEDS: Piperacillin/Tazobactam 4.5 GM in Dextrose 5% in Water 100 ML IV SCH ×4 (02:52→10:25)
[2017-01-29] MEDS: Acetaminophen/HYDROcodone 325-5 MG Tab PO PRN ×2 (02:52→10:02)
[2017-01-29] MEDS: Pantoprazole 40 MG Tab.CR PO SCH (06:46)
[2017-01-29] MEDS: Lisinopril 10 MG Tab PO SCH (08:03)
[2017-01-29] MEDS: Enoxaparin 40 MG/0.4 ML Syringe SUBCUT SCH (08:03)
[2017-01-29] MEDS: Aspirin 81 MG Tab.Chew PO SCH (08:03)
[2017-01-29] MEDS: Acetaminophen 325 MG Tab PO PRN (08:04)
--- NOTE | 2017-01-29 08:54 | PCM.PN ---
- General Info Date of Service: 01/29/17 - Patient Data Vitals - Most Recent: Last Vital Signs Temp 97.7 F 01/29/17 07:59 Pulse 70 01/29/17 07:59 Resp 19 01/29/17 07:59 BP 128/89 01/29/17 08:03 Pulse Ox 93 L 01/29/17 07:59 Weight - Most Recent: 93.803 kg I&O - Last 24 Hours: Intake & Output 01/28/17 01/29/17 01/29/17 23:59 07:59 15:59 Intake Total 990 1000 Output Total 650 Balance 340 1000 Lab Results Last 24 Hours: Laboratory Results - last 24 hr 01/29/17 Range/Units 06:02 WBC 7.65 (3.98-10.04) K/mm3 RBC 3.67 L (3.98-5.22) M/mm3 Hgb 9.5 L (11.2-15.7) gm/L Hct 30.2 L (34.1-44.9) % MCV 82.3 (79.4-94.8) fl MCH 25.9 (25.6-32.2) pg MCHC 31.5 L (32.2-35.5) g/dl RDW Std Deviation 45.0 (36.4-46.3) fL Plt Count 319 (182-369) K/mm3 MPV 8.7 L (9.4-12.3) fl Neut % (Auto) 63.1 (34.0-71.1) % Lymph % (Auto) 18.0 L (19.3-51.7) % [place] % (Auto) 11.4 (4.7-12.5) % Eos % (Auto) 6.3 H (0.7-5.8) Baso % (Auto) 0.5 (0.1-1.2) % Neut # (Auto) 4.83 (1.56-6.13) K/mm3 Lymph # (Auto) 1.38 (1.18-3.74) K/mm3 [place] # (Auto) 0.87 H (0.24-0.36) K/mm3 Eos # (Auto) 0.48 H (0.04-0.36) K/mm3 Baso # (Auto) 0.04 (0.01-0.08) K/mm3 Manual Slide Review Abnormal smear Med Orders - Current: Current Medications Acetaminophen (Tylenol) 650 mg PO Q6H PRN PRN Reason: Pain Last Admin: 01/29/17 08:04 Dose: 650 mg Hydrocodone Bitart/Acetaminophen (Ten Sleep 325-5 Mg) 1 tab PO Q6H PRN PRN Reason: Pain Last Admin: 01/29/17 02:52 Dose: 1 tab Al Hydroxide/Mg Hydroxide (Mag-Al Plus) 30 ml PO Q2H PRN PRN Reason: heart burn Last Admin: 01/26/17 21:15 Dose: 30 ml Aspirin (Aspirin) 81 mg PO DAILY [facility] Last Admin: 01/29/17 08:03 Dose: 81 mg Enoxaparin Sodium (Lovenox) 40 mg SUBCUT DAILY [facility] Last Admin: 01/29/17 08:03 Dose: 40 mg Piperacillin Sod/Tazobactam (Sod 4.5 gm/ Dextrose/Water) 100 mls @ 25 mls/hr IV Q8H [facility] Last Admin: 01/29/17 02:52 Dose: 25 mls/hr Lisinopril (Prinivil) 10 mg PO DAILY [facility] Last Admin: 01/29/17 08:03 Dose: 10 mg Morphine Sulfate (Morphine) 4 mg IVPUSH Q2H PRN PRN Reason: Abdominal Pain Last Admin: 01/26/17 16:02 Dose: 2 mg Pantoprazole Sodium (Protonix) 40 mg PO DAILY@0700 [facility] Last Admin: 01/29/17 06:46 Dose: 40 mg Discontinued Medications Bupivacaine HCl/Epinephrine Bitart (Marcaine 0.25%/Epinephrine 1:200,000) Confirm Administered Dose 30 ml .ROUTE .STK-MED ONE Stop: 01/25/17 16:28 Last Admin: 01/25/17 17:25 Dose: 9.5 ml Dexamethasone (Dexamethasone) Confirm Administered Dose 20 mg .ROUTE .STK-MED ONE Stop: 01/25/17 17:34 Diatrizoate Meglum/Diatrizoate Sod (Gastrografin 37%) 90 ml PO ONETIME ONE Stop: 01/25/17 12:01 Last Admin: 01/25/17 12:18 Dose: 90 ml Diphenhydramine HCl (Benadryl) 25 mg IVPUSH Q6H PRN PRN Reason: Pruritis Ephedrine Sulfate (Ephedrine Sulfate) Confirm Administered Dose 50 mg .ROUTE .STK-MED ONE Stop: 01/25/17 17:18 Fentanyl (Sublimaze) 50 mcg IVPUSH Q5M PRN PRN Reason: Pain Stop: 01/25/17 17:48 Fentanyl (Sublimaze) Confirm Administered Dose 250 mcg .ROUTE .STK-MED ONE Stop: 01/25/17 16:58 Glycopyrrolate () Confirm Administered Dose 1 mg .ROUTE .STK-MED ONE Stop: 01/25/17 18:08 Hydromorphone HCl (Dilaudid) 0.5 mg IVPUSH ONETIME ONE Stop: 01/25/17 11:41 Last Admin: 01/25/17 11:47 Dose: 0.5 mg Hydromorphone HCl (Dilaudid) 0.5 mg IVPUSH Q15M PRN PRN Reason: Pain (severe 7-10) Stop: 01/25/17 18:27 Sodium Chloride (Normal Saline) 1,000 mls @ 150 mls/hr IV ASDIRECTED [facility] Last Admin: 01/25/17 11:28 Dose: 150 mls/hr Piperacillin Sod/Tazobactam (Sod 4.5 gm/ Sodium Chloride) 100 mls @ 200 mls/hr IV ONETIME STA Stop: 01/25/17 14:51 Last Admin: 01/25/17 14:31 Dose: 200 mls/hr Potassium Chloride/Sodium Chloride (Normal Saline With 20 Meq Kcl) 1,000 mls @ 125 mls/hr IV ASDIRECTED [facility] Last Admin: 01/25/17 15:07 Dose: 150 mls/hr Promethazine HCl 6.25 mg/ (Sodium Chloride) 50.25 mls @ 100 mls/hr IV ONETIME PRN PRN Reason: Nausea/Vomiting Piperacillin Sod/Tazobactam (Sod 4.5 gm/ Sodium Chloride) 100 mls @ 200 mls/hr IV ONETIME ONE Stop: 01/25/17 19:29 Piperacillin Sod/Tazobactam (Sod 4.5 gm/ Sodium Chloride) 100 mls @ 25 mls/hr IV Q8H [facility] Last Admin: 01/27/17 03:14 Dose: 25 mls/hr Piperacillin Sod/Tazobactam (Sod 4.5 gm/ Sodium Chloride) 100 mls @ 200 mls/hr IV Q8H [facility] Last Admin: 01/26/17 02:28 Dose: Not Given Potassium Chloride/Dextrose/Sod Cl (D5 1/2 Ns W/ 10 Meq/L Kcl) Confirm Administered Dose 1,000 mls @ as directed .ROUTE .STK-MED ONE Stop: 01/25/17 20:48 Last Admin: 01/25/17 20:55 Dose: 1,000 ml Potassium Chloride/Dextrose/Sod Cl (D5 1/2 Ns W/ 10 Meq/L Kcl) 1,000 mls @ 125 mls/hr IV ASDIRECTED [facility] Last Admin: 01/26/17 21:16 Dose: 125 mls/hr Lidocaine HCl (Xylocaine-Mpf 1%) Confirm Administered Dose 4 mls @ as directed .ROUTE .STK-MED ONE Stop: 01/25/17 17:34 Lactated Ringer's (Ringers, Lactated) Confirm Administered Dose 1,000 mls @ as directed .ROUTE .STK-MED ONE Stop: 01/25/17 18:34 Iopamidol (Isovue-300 (61%)) 125 ml IVPUSH ONETIME ONE Stop: 01/25/17 12:01 Last Admin: 01/25/17 12:17 Dose: 125 ml Ketorolac Tromethamine (Toradol) 30 mg IVPUSH Q6H [facility] Stop: 01/29/17 00:01 Last Admin: 01/27/17 12:59 Dose: Not Given Lidocaine HCl (Xylocaine-Mpf 1%) Confirm Administered Dose 30 ml .ROUTE .STK- MED ONE Stop: 01/25/17 16:28 Last Admin: 01/25/17 17:25 Dose: 9.5 ml Meperidine HCl (Demerol) 12.5 mg IVPUSH ONETIME PRN PRN Reason: Shivering Neostigmine Methylsulfate (Neostigmine) Confirm Administered Dose 5 mg .ROUTE .STK-MED ONE Stop: 01/25/17 18:08 Ondansetron HCl (Zofran) 4 mg IVPUSH ONETIME ONE Stop: 01/25/17 11:41 Last Admin: 01/25/17 11:50 Dose: 4 mg Ondansetron HCl (Zofran) Confirm Administered Dose 4 mg .ROUTE .STK-MED ONE Stop: 01/25/17 17:34 Propofol (Diprivan 20 Ml) Confirm Administered Dose 200 mg .ROUTE .STK-MED ONE Stop: 01/25/17 16:58 Rocuronium [place] (Zemuron) Confirm Administered Dose 50 mg .ROUTE .STK-MED ONE Stop: 01/25/17 17:34 Sodium Chloride (Saline Flush) 10 ml FLUSH ONETIME ONE Stop: 01/25/17 12:01 Last Admin: 01/25/17 12:18 Dose: 10 ml - Problem List Review Problem List Initiated/Reviewed/Updated: Yes - My Orders Last 24 Hours: My Active Orders 01/28/17 23:35 Vital Signs [RC] Q4H 01/29/17 08:53 Ready for Discharge [RC] PER UNIT ROUTINE - Plan Plan:: pt improving disposition she feels better and tolerating diet VS stable exam wound healed ass ruptured appendix plan continue with IV antibiotic and check wbc tomorrow \ABILIO discharge dictated ABILIO
[2017-01-29] MEDS ORDERED: Hydrochlorothiazide 25 MG Tab PO SCH (09:00)
[2017-01-29 12:10] VITALS: BP 135/89
[2017-01-29] MEDS ORDERED: Diphtheria,Pertussis(Acell),Tetanus Vaccine 0.5 ML SDV IM ONE (13:30)
--- NOTE | 2017-01-29 23:11 | DISCH ---
ADMISSION DATE: 01/25/2017 DISCHARGE DATE: 01/29/2017 HOSPITAL COURSE: This is a 76-year-old female who developed pain the day before admission to the hospital. It was in the epigastric area and then migrated to the right lower quadrant, crampy, burning, stabbing in character, is worse with walking and coughing. The patient was seen in the clinic the next day and underwent a CT scan showing appendicitis. The patient was brought to the operating room where an open appendectomy was performed showing early rupture of the appendix. The patient was placed in the hospital on IV antibiotics. PHYSICAL EXAMINATION: GENERAL: At the time of admission, showed an alert, cooperative female. ABDOMEN: Normal bowel sounds. There is tenderness in the right lower quadrant. LABORATORY DATA: White count was elevated at 18,000. HOSPITAL COURSE: The patient after being brought to the operating room for an open laparoscopic appendectomy was continued on antibiotics of Zosyn. It started preoperatively , continued on , , the , and the . Her white count slowly came down, at the time of this dictation, was in the normal range. The patient at this time was up and ambulating, moving about. She was passing gas and eating a diet. The patient's GI function did take some time to return and really became functional yesterday. The patient was felt to reach maximal hospital benefit and was discharged for followup in the clinic. DISCHARGE DIAGNOSES: 1. Ruptured appendix status post open appendectomy. 2. Small ileus represented by some abdominal distention and poor appetite, which resolved spontaneously over the next few days. DIET: Regular diet. MEDICATIONS: Per medication reconciliation form. ACTIVITY: No work. INSTRUCTIONS: Recommended she follow up in 1 week with me and we will continue her on her home medications plus Levaquin for 3 days and pain medications of Vicodin. CONDITION ON DISCHARGE: Improved. FINAL DIAGNOSIS: DISCHARGE MEDICATIONS: FOLLOW-UP: MMHAY /[id number]
== END 2017-01-29 14:20 | disposition home or self-care (01) | DRG 372 ==
LOC: JD.ED 09:52 → JD.SDS 16:23 → JD.MS 16:23 → UNDOADMIN 16:23 → JD.MS 19:45 → UNDODISIN 01-29 14:20
PROVIDERS: ADMIT Surgery; ATTEND Surgery
PROC: 3E0234Z Introduction of Serum, Toxoid and Vaccine into Muscle, Percutaneous Approach (ICD-10-PCS; principal; 2017-01-29)
DX: K35.2 Acute appendicitis with generalized peritonitis (principal); K56.7 Ileus, unspecified; K21.9 Gastro-esophageal reflux disease without esophagitis; K44.9 Diaphragmatic hernia without obstruction or gangrene; K27.9 Peptic ulcer, site unspecified, unspecified as acute or chronic, without hemorrhage or perforation; M19.90 Unspecified osteoarthritis, unspecified site; G89.29 Other chronic pain; M54.5 Low back pain; E66.9 Obesity, unspecified; Z68.30 Body mass index [BMI] 30.0-30.9, adult; H54.7 Unspecified visual loss; Z96.641 Presence of right artificial hip joint; Z88.6 Allergy status to analgesic agent; I10 Essential (primary) hypertension; Z79.899 Other long term (current) drug therapy; Z87.891 Personal history of nicotine dependence; Z23 Encounter for immunization
CPT/HCPCS: 36415; 44960; 74177; 80053; 81001; 83690; 85025; 87070; 87075; 87076; 87077 ×3; 87181 ×2; 87186 ×3; 87205; 88304; 93005; 96361; 96365; 96375; 99285; J1100; J1170; J2405 ×2; J2543; J2710; J3010; J3480; J7030; J7040; J7050; J7120; P9612; Q9963; Q9967; 00840; 80048; 90471; 90715; 94761; 99284; A9270-GY; J1650; J1885; J2270; J2704; J7060

== ENCOUNTER 2017-07-06 08:03 | Observation (INO) | payer MEDICARE, OTHER ==
[~2017-07-06 08:03] MED LIST changes: -Ketorolac 30 MG/ML SDV IVPUSH PRN; +Lactated Ringers 1,000 ML IV SCH; +Lactated Ringers 1,000 ML ONE; +Lidocaine 1% 4 ML ONE; +Lidocaine 1%/Sod Bicarbonate in NS 8.4% 1 ML Syringe IDERM PRN; +Midazolam 1 MG/ML 2 ML SDV ONE; +Ondansetron 4 MG/2 ML SDV ONE; +Propofol 200 MG/20 ML SDV ONE; +Rocuronium 50 MG/5 ML Vial ONE; +Sodium Chloride 0.9% 10 ML Syringe FLUSH PRN; +ceFAZolin 1 GM Vial ONE; +fentaNYL 250 MCG/5 ML SDV ONE
[2017-07-06] MEDS ORDERED: Bupivacaine 0.5% 30 ML SDV ONE (09:14)
--- NOTE | 2017-07-06 09:14 | PCM.PREANE ---
Preanesthetic Assessment - Anesthesia/Transfusion/Family Hx Anesthesia History: Prior Anesthesia Without Reaction Family History of Anesthesia Reaction: No Transfusion History: Prior Transfusion Without Reaction Type of Transfusion Reactions: Reports: Unknown - Review of Systems General: No Symptoms Pulmonary: No Symptoms, Other (Former Smoker, Sinus drainage right now, mild sore throat. ) Cardiovascular: No Symptoms Gastrointestinal: No Symptoms Neurological: No Symptoms Other: Reports: Diabetes (Prediabetes) - Physical Assessment NPO Status Date: 07/05/17 NPO Status Time: 21:00 Pulse: 75 O2 Sat by Pulse Oximetry: 96 Respiratory Rate: 18 Blood Pressure: 148/75 Temperature: 36.2 C Weight: 89 kg ASA Class: 2 Mental Status: Alert & Oriented x3 Airway Class: Mallampati = 1 Dentition: Reports: Dentures (Upper and Lower) Thyro-Mental Finger Breadths: 3 Mouth Opening Finger Breadths: 3 ROM/Head Extension: Full Lungs: Clear to Auscultation, Normal Respiratory Effort Cardiovascular: Regular Rate, Regular Rhythm - Allergies Allergies/Adverse Reactions: Allergies Allergy/AdvReac Type Severity Reaction Status Date / Time oxycodone HCl [From Percocet] Allergy Hives Verified 07/03/17 12:44 - Acknowledgements Anesthesia Type Planned: General Anesthesia Pt an Appropriate Candidate for the Planned Anesthesia: Yes Alternatives and Risks of Anesthesia Discussed w Pt/Guardian: Yes Pt/Guardian Understands and Agrees with Anesthesia Plan: Yes PreAnesthesia Questionnaire HEENT History: Reports: Impaired Vision, Other (See Below) Other HEENT History: wears glasses Cardiovascular History: Reports: Blood Clots/VTE/DVT, Hypertension Respiratory History: Reports: None Gastrointestinal History: Reports: Cholelithiasis, GERD, Hiatal Hernia, PUD, Other (See Below) Other Gastrointestinal History: spegallian hernia, bleeding ulcer Genitourinary History: Reports: None CORPORATE RELATIONS DIRECTOR History: Reports: Musculoskeletal History: Reports: Arthritis, Back Pain, Chronic, Other (See Below) Other Musculoskeletal History: degenerative joint disease, left wrist fracture with repair Neurological History: Reports: None Psychiatric History: Reports: None Endocrine/Metabolic History: Reports: Obesity/BMI 30+, Other (See Below) Other Endocrine/Metabolic History: had diabetes but can control with diet Hematologic History: Reports: Other (See Below) Other Hematologic History: 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 and then again same leg 10yrs later and no problems since Immunologic History: Reports: None Oncologic (Cancer) History: Reports: None Dermatologic History: Reports: None - Infectious Disease History Infectious Disease History: Reports: Chicken Pox, Measles - Past Surgical History HEENT Surgical History: Reports: Cataract Surgery, Oral Surgery Cardiovascular Surgical History: Reports: None Respiratory Surgical History: Reports: None GI Surgical History: Reports: Appendectomy, Colonoscopy Female Surgical History: Reports: Tubal Ligation Endocrine Surgical History: Reports: None Neurological Surgical History: Reports: Lumbar Spine, Other (See Below) Other Neurological Surgeries/Procedures: herniated disc removed and has [address] l4-5 Musculoskeletal Surgical History: Reports: Hip Replacement, Other (See Below) Other Musculoskeletal Surgeries/Procedures:: back surgery, Right total hip replacement Oncologic Surgical History: Reports: None Dermatological Surgical History: Reports: None - SUBSTANCE USE Smoking Status *Q: Former Smoker Tobacco Use Within Last Twelve Months: Cigarettes Second Hand Smoke Exposure: No Recreational Drug Use History: No - HOME MEDS Home Medications: Home Meds Lisinopril 10 mg PO DAILY 02/14/15 [History] Omeprazole 20 mg PO DAILY 02/14/15 [History] Aspirin 81 mg PO DAILY 07/03/17 [History] B2/Vit A,C & E/Lut/Zeaxanth/Mn [Icaps] 1 tab PO DAILY 07/03/17 [History] Calcium Carbonate/Vitamin D3 [Calcium 500 + Vit D 400] 1 tab PO DAILY 07/03/17 [ History] Fish Oil/DHA/EPA [Fish Oil 1,200 MG] 1 cap PO DAILY 07/03/17 [History] Hydrochlorothiazide 25 mg PO DAILY 07/03/17 [History] Multivitamin [Daily Roro] 1 tab PO DAILY 07/03/17 [History] - CURRENT (IN HOUSE) MEDS Current Meds: Current Medications Lactated Ringer's (Ringers, Lactated) 1,000 mls @ 125 mls/hr IV ASDIRECTED [facility] Stop: 07/06/17 23:00 Lidocaine/Sodium Bicarbonate (Buffered Lidocaine 1% In Ns 8.4%) 0.25 ml IDERM ONETIME PRN PRN Reason: Prior to IV Start Stop: 07/06/17 18:00 Sodium Chloride (Saline Flush) 10 ml FLUSH ASDIRECTED PRN PRN Reason: Keep Vein Open Stop: 07/06/17 18:00 Discontinued Medications Cefazolin Sodium (Ancef) Confirm Administered Dose 2 gm .ROUTE .STK-MED ONE Stop: 07/06/17 07:30 Fentanyl (Sublimaze) Confirm Administered Dose 250 mcg .ROUTE .STK-MED ONE Stop: 07/06/17 07:30 Lactated Ringer's (Ringers, Lactated) Confirm Administered Dose 1,000 mls @ as directed .ROUTE .STK-MED ONE Stop: 07/06/17 07:30 Lidocaine HCl (Xylocaine-Mpf 1%) Confirm Administered Dose 4 mls @ as directed .ROUTE .STK-MED ONE Stop: 07/06/17 07:31 Midazolam HCl (Versed 1 Mg/Ml) Confirm Administered Dose 2 mg .ROUTE .STK-MED ONE Stop: 07/06/17 07:30 Ondansetron HCl (Zofran) Confirm Administered Dose 4 mg .ROUTE .STK-MED ONE Stop: 07/06/17 07:30 Propofol (Diprivan 20 Ml) Confirm Administered Dose 400 mg .ROUTE .STK-MED ONE Stop: 07/06/17 07:30 Rocuronium [place] (Zemuron) Confirm Administered Dose 50 mg .ROUTE .STK-MED ONE Stop: 07/06/17 07:30
[2017-07-06] MEDS ORDERED: metroNIDAZOLE/Normal Saline 500 MG in Premix Bag 1 BAG IV ONE (09:15)
[2017-07-06] MEDS ORDERED: HYDROmorphone 0.5 MG/0.5 ML Syringe ONE ×2 (10:24→11:24)
[2017-07-06] MEDS ORDERED: Haloperidol Lactate 5 MG/ML SDV IVPUSH ONE (10:29)
[2017-07-06] MEDS ORDERED: HYDROmorphone 0.5 MG/0.5 ML Syringe IVPUSH PRN (10:29)
[2017-07-06] MEDS ORDERED: ePHEDrine 50 MG/ML SDV ONE (10:51)
[2017-07-06] MEDS ORDERED: Neostigmine Methylsulfate 10 MG/10 ML MDV ONE (10:52)
[2017-07-06] MEDS ORDERED: Glycopyrrolate 0.2 MG/ML SDV ONE (10:52)
--- NOTE | 2017-07-06 11:45 | PCM.POSTAN ---
POST ANESTHESIA ASSESSMENT - MENTAL STATUS Mental Status: Alert, Oriented - VITAL SIGNS Pulse Rate: 79 SaO2: 96 Resp Rate: 8 Blood Pressure: 130/92 Temperature: 36.2 C - RESPIRATORY Respiratory Status: Respiratory Rate WNL, Airway Patent, O2 Saturation Stable, Supplemental Oxygen - CARDIOVASCULAR CV Status: Pulse Rate WNL, Blood Pressure Stable - GASTROINTESTINAL GI Status: No Symptoms - PAIN Pain Score: 0 - POST OP HYDRATION Hydration Status: Adequate & Stable
[2017-07-06] MEDS: fentaNYL 100 MCG/2 ML SDV IVPUSH PRN ×2 (11:58→12:17)
--- NOTE | 2017-07-06 11:59 | PCM.OPNOTE ---
- General Post-Op/Procedure Note Date of Surgery/Procedure: 07/06/17 Operative Procedure(s): laproscopic ventral hernia repair Pre Op Diagnosis: ventral hernia Post-Op Diagnosis: Same Primary Surgeon: Toi Jorgensen EBRoge in mLs: 20 Complications: None Condition: Good
[2017-07-06] MEDS ORDERED: HYDROmorphone 0.5 MG/0.5 ML Syringe IVPUSH ONE (12:05)
[2017-07-06] MEDS ORDERED: Lactated Ringers 1,000 ML IV SCH ×2 (12:15→20:00)
--- NOTE | 2017-07-06 12:55 | PCM48HPAN ---
Post Anesthesia Note - EVALUATION WITHIN 48HRS OF ANESTHETIC Vital Signs in Normal Range: Yes Patient Participated in Evaluation: Yes Respiratory Function Stable: Yes Airway Patent: Yes Cardiovascular Function Stable: Yes Hydration Status Stable: Yes Pain Control Satisfactory: Yes Nausea and Vomiting Control Satisfactory: Yes Mental Status Recovered: Yes
[2017-07-06] MEDS ORDERED: Ondansetron 4 MG/2 ML SDV IVPUSH PRN (15:17)
[2017-07-06] MEDS: HYDROmorphone 0.5 MG/0.5 ML SYRINGE IVPUSH PRN ×2 (15:33→19:26)
[2017-07-06] MEDS: Acetaminophen/HYDROcodone 325-10 MG Tab PO PRN (22:01)
[2017-07-07] MEDS: HYDROmorphone 0.5 MG/0.5 ML SYRINGE IVPUSH PRN (00:24)
[2017-07-07] MEDS: Acetaminophen/HYDROcodone 325-10 MG Tab PO PRN ×4 (05:16→21:54)
--- NOTE | 2017-07-07 07:55 | OR ---
DATE OF OPERATION: 07/06/2017 SURGEON: Toi Jorgensen MD PREOPERATIVE DIAGNOSIS: Ventral hernia. POSTOPERATIVE DIAGNOSIS: Ventral hernia. OPERATION PERFORMED: Repair laparoscopically with Ventralight ST mesh, reference #[id number], and mesh size was 15.2 x 20.3 cm. ESTIMATED BLOOD LOSS: About 20 mL. DESCRIPTION OF PROCEDURE: The patient was taken to the operating room, placed in a supine position, given a general anesthetic and intubated, and antibiotics were given. SCDs were placed. The abdomen was prepped with chlorhexidine and alcohol, prepped and draped off in a sterile fashion. Incision was made just above the umbilicus. Using a 5-mm Optiport, abdominal cavity was entered, followed by a 5-mm 30- degree camera. This showed a large ventral hernia approximately about 18 x 15 cm, without any adhesions within it. The patient was then placed in Trendelenburg with leftward tilt, and a Ventralight measuring 15.2 x 20.3 cm was chosen and quadrant sutures were then placed using 0 Prolene. The port above the umbilicus was changed out for a 10-mm port. A 5-mm port placed in right upper and one in the left lower quadrant. The mesh, having been prepped, was then placed in the abdominal cavity, unfurled with the prep side down. 4- quadrant sutures were then brought out through the marked quadrant sites on the abdominal cavity, and then the lower edge of the mesh was then tacked down with Protac. This was continued around the edge of the mesh, making sure there was at least 2 to 3 cm overlap. Following this, additional quadrant sutures were then tied by first placing another suture through them to anchor them in place using 0 Prolene suture. The mesh was then checked and found to lie in a good position. The abdominal cavity was slowly deflated showing a proper fit for the mesh. The subcuticular tissue in two of the sites were closed with 3-0 Vicryl suture. The skin of each site closed with subdermal 4-0 Dexon suture. Steri- Strips and sterile dressing were placed and 0.5% Marcaine was infiltrated in the skin of each port. The patient tolerated the procedure and was sent to recovery room in a stable condition. ANESTHESIA: MMODAL /[id number]
[2017-07-07] MEDS: Lisinopril 10 MG Tab PO SCH (08:18)
[2017-07-07] MEDS: Hydrochlorothiazide 25 MG Tab PO SCH (08:18)
[2017-07-07] MEDS: Aspirin 81 MG Tab.Chew PO SCH (08:18)
[2017-07-07] MEDS: Pantoprazole 40 MG Tab.CR PO SCH (08:18)
[2017-07-07] MEDS: Heparin Sodium 5,000 Units/ML Vial SUBCUT SCH ×2 (10:05→21:54)
[2017-07-08] MEDS: Acetaminophen/HYDROcodone 325-10 MG Tab PO PRN ×4 (04:01→23:02)
[2017-07-08] MEDS: Pantoprazole 40 MG Tab.CR PO SCH (06:58)
[2017-07-08] MEDS: Lisinopril 10 MG Tab PO SCH (09:25)
[2017-07-08] MEDS: Hydrochlorothiazide 25 MG Tab PO SCH (09:29)
[2017-07-08] MEDS: Aspirin 81 MG Tab.Chew PO SCH (09:29)
[2017-07-08] MEDS: Heparin Sodium 5,000 Units/ML Vial SUBCUT SCH ×2 (09:29→20:26)
[2017-07-08] MEDS ORDERED: Bisacodyl 10 MG Supp RECTAL ONE (15:10)
--- NOTE | 2017-07-08 15:10 | PCM.SURGPN ---
- General Info Date of Service: 07/08/17 Functional Status: Reports: Pain Controlled - Review of Systems Pulmonary: Reports: No Symptoms Cardiovascular: Reports: No Symptoms Gastrointestinal: Reports: Constipation - Patient Data Vitals - Most Recent: Last Vital Signs Temp 98.4 F 07/08/17 09:29 Pulse 83 07/08/17 09:29 Resp 18 07/08/17 09:29 BP 135/96 H 07/08/17 09:29 Pulse Ox 95 07/08/17 09:29 Weight - Most Recent: 92.278 kg I&O - Last 24 Hours: Intake & Output 07/07/17 07/08/17 07/08/17 23:59 07:59 15:59 Intake Total 640 400 200 Balance 640 400 200 Med Orders - Current: Current Medications Hydrocodone Bitart/Acetaminophen (Cascade 325-10 Mg) 1 tab PO Q6H PRN PRN Reason: Pain Last Admin: 07/08/17 10:18 Dose: 1 tab Aspirin (Aspirin) 81 mg PO DAILY [facility] Last Admin: 07/08/17 09:29 Dose: 81 mg Heparin Sodium (Porcine) (Heparin Sodium) 5,000 units SUBCUT Q12HR [facility] Last Admin: 07/08/17 09:29 Dose: 5,000 units Hydrochlorothiazide (Hydrochlorothiazide) 25 mg PO DAILY [facility] Last Admin: 07/08/17 09:29 Dose: 25 mg Lisinopril (Prinivil) 10 mg PO DAILY [facility] Last Admin: 07/08/17 09:25 Dose: 10 mg Ondansetron HCl (Zofran) 4 mg IVPUSH Q8H PRN PRN Reason: nausea Pantoprazole Sodium (Protonix) 40 mg PO DAILY@0700 [facility] Last Admin: 07/08/17 06:58 Dose: 40 mg Discontinued Medications Hydrocodone Bitart/Acetaminophen (Cascade 325-10 Mg) 1 tab PO Q4H PRN PRN Reason: Pain Last Admin: 07/07/17 10:05 Dose: 1 tab Bupivacaine HCl (Marcaine 0.5%) Confirm Administered Dose 30 ml .ROUTE .STK-MED ONE Stop: 07/06/17 09:15 Last Admin: 07/06/17 11:16 Dose: 30 ml Cefazolin Sodium (Ancef) Confirm Administered Dose 2 gm .ROUTE .STK-MED ONE Stop: 07/06/17 07:30 Ephedrine Sulfate (Ephedrine Sulfate) Confirm Administered Dose 50 mg .ROUTE .STK-MED ONE Stop: 07/06/17 10:52 Fentanyl (Sublimaze) Confirm Administered Dose 250 mcg .ROUTE .STK-MED ONE Stop: 07/06/17 07:30 Fentanyl (Sublimaze) 50 mcg IVPUSH Q5M PRN PRN Reason: Pain Stop: 07/06/17 18:00 Last Admin: 07/06/17 12:17 Dose: 50 mcg Glycopyrrolate (Robinul) Confirm Administered Dose 0.6 mg .ROUTE .STK-MED ONE Stop: 07/06/17 10:53 Haloperidol Lactate (Haldol) 1 mg IVPUSH ONETIME ONE Stop: 07/06/17 10:30 Last Admin: 07/06/17 14:41 Dose: Not Given Hydromorphone HCl (Dilaudid) Confirm Administered Dose 0.5 mg .ROUTE .STK-MED ONE Stop: 07/06/17 10:25 Hydromorphone HCl (Dilaudid) 0.5 mg IVPUSH ASDIRECTED PRN PRN Reason: Severe Pain Stop: 07/06/17 12:00 Last Admin: 07/06/17 11:47 Dose: 0.5 mg Hydromorphone HCl (Dilaudid) Confirm Administered Dose 0.5 mg .ROUTE .STK-MED ONE Stop: 07/06/17 11:25 Hydromorphone HCl (Dilaudid) 0.5 mg IVPUSH ONETIME ONE Stop: 07/06/17 12:06 Last Admin: 07/06/17 14:41 Dose: Not Given Hydromorphone HCl (Dilaudid) 1 mg IVPUSH Q2H PRN PRN Reason: Pain Last Admin: 07/07/17 00:24 Dose: 1 mg Lactated Ringer's (Ringers, Lactated) 1,000 mls @ 125 mls/hr IV ASDIRECTED [facility] Stop: 07/06/17 23:00 Last Admin: 07/06/17 09:05 Dose: 125 mls/hr Lactated Ringer's (Ringers, Lactated) Confirm Administered Dose 1,000 mls @ as directed .ROUTE .STK-MED ONE Stop: 07/06/17 07:30 Lidocaine HCl (Xylocaine-Mpf 1%) Confirm Administered Dose 4 mls @ as directed .ROUTE .STK-MED ONE Stop: 07/06/17 07:31 Metronidazole 500 mg/ Premix 100 mls @ 100 mls/hr IV ONETIME ONE Stop: 07/06/17 10:14 Last Admin: 07/06/17 14:41 Dose: Not Given Lactated Ringer's (Ringers, Lactated) 1,000 mls @ 100 mls/hr IV ASDIRECTED [facility] Last Admin: 07/06/17 14:48 Dose: 100 mls/hr Lactated Ringer's (Ringers, Lactated) 1,000 mls @ 50 mls/hr IV ASDIRECTED [facility] Last Admin: 07/07/17 05:17 Dose: 50 mls/hr Lidocaine/Sodium Bicarbonate (Buffered Lidocaine 1% In Ns 8.4%) 0.25 ml IDERM ONETIME PRN PRN Reason: Prior to IV Start Stop: 07/06/17 18:00 Midazolam HCl (Versed 1 Mg/Ml) Confirm Administered Dose 2 mg .ROUTE .STK-MED ONE Stop: 07/06/17 07:30 Neostigmine Methylsulfate (Neostigmine Methylsulfate) Confirm Administered Dose 10 mg .ROUTE .STK-MED ONE Stop: 07/06/17 10:53 Ondansetron HCl (Zofran) Confirm Administered Dose 4 mg .ROUTE .STK-MED ONE Stop: 07/06/17 07:30 Propofol (Diprivan 20 Ml) Confirm Administered Dose 400 mg .ROUTE .STK-MED ONE Stop: 07/06/17 07:30 Rocuronium [place] (Zemuron) Confirm Administered Dose 50 mg .ROUTE .STK-MED ONE Stop: 07/06/17 07:30 Sodium Chloride (Saline Flush) 10 ml FLUSH ASDIRECTED PRN PRN Reason: Keep Vein Open Stop: 07/06/17 18:00 - Exam Wound/Incisions: Healing Well General: Alert, Oriented Lungs: Clear to Auscultation, Normal Respiratory Effort Cardiovascular: Regular Rate, Regular Rhythm GI/Abdominal Exam: Distended - Problem List Review Problem List Initiated/Reviewed/Updated: Yes - My Orders Last 24 Hours: Medication Orders Hydrocodone Bitart/Acetaminophen (Cascade 325-10 Mg) 1 tab PO Q6H PRN PRN Reason: Pain Last Admin: 07/08/17 10:18 Dose: 1 tab Admin: 07/08/17 04:01 Dose: 1 tab Admin: 07/07/17 21:54 Dose: 1 tab Admin: 07/07/17 16:21 Dose: 1 tab Aspirin (Aspirin) 81 mg PO DAILY [facility] Last Admin: 07/08/17 09:29 Dose: 81 mg Admin: 07/07/17 08:18 Dose: 81 mg Heparin Sodium (Porcine) (Heparin Sodium) 5,000 units SUBCUT Q12HR [facility] Last Admin: 07/08/17 09:29 Dose: 5,000 units Admin: 07/07/17 21:54 Dose: 5,000 units Admin: 07/07/17 10:05 Dose: 5,000 units Hydrochlorothiazide (Hydrochlorothiazide) 25 mg PO DAILY [facility] Last Admin: 07/08/17 09:29 Dose: 25 mg Admin: 07/07/17 08:18 Dose: 25 mg Lisinopril (Prinivil) 10 mg PO DAILY [facility] Last Admin: 07/08/17 09:25 Dose: 10 mg Admin: 07/07/17 08:18 Dose: 10 mg Ondansetron HCl (Zofran) 4 mg IVPUSH Q8H PRN PRN Reason: nausea Pantoprazole Sodium (Protonix) 40 mg PO DAILY@0700 [facility] Last Admin: 07/08/17 06:58 Dose: 40 mg Admin: 07/07/17 08:18 Dose: 40 mg - Plan Plan (Free Text/Narrative):: pt seen yesterday but computer lock me out and unable to place note in the chart but have been able with the help of administration to unlock the computer which was done today. Pt yesterday had some destension and constipation but refused laxatives. Dilauid stoped pt now has more distension and has accepted the idea of a suppository exam abdominal distension and wound clean and lungs clear ass ileus and constipation plan laxatives
[2017-07-08] MEDS: Docusate Sodium 100 MG Cap PO SCH (16:33)
[2017-07-08] MEDS ORDERED: Magnesium Hydroxide 400 MG/5 ML Susp 30 ML Cup PO ONE (17:40)
[2017-07-09] MEDS: Acetaminophen/HYDROcodone 325-10 MG Tab PO PRN ×2 (05:26→10:34)
[2017-07-09] MEDS: Pantoprazole 40 MG Tab.CR PO SCH (06:46)
[2017-07-09] MEDS: Heparin Sodium 5,000 Units/ML Vial SUBCUT SCH (08:33)
[2017-07-09 08:34] VITALS: BP 121/76
[2017-07-09] MEDS: Hydrochlorothiazide 25 MG Tab PO SCH (08:34)
[2017-07-09] MEDS: Docusate Sodium 100 MG Cap PO SCH (08:34)
[2017-07-09] MEDS: Aspirin 81 MG Tab.Chew PO SCH (08:34)
[2017-07-09] MEDS: Lisinopril 10 MG Tab PO SCH (08:34)
--- NOTE | 2017-07-09 09:24 | PCM.SURGPN ---
- General Info Date of Service: 07/09/17 - Patient Data Vitals - Most Recent: Last Vital Signs Temp 98.4 F 07/09/17 08:33 Pulse 84 07/09/17 08:33 Resp 16 07/09/17 08:33 BP 121/76 07/09/17 08:34 Pulse Ox 91 L 07/09/17 08:33 Weight - Most Recent: 91.127 kg I&O - Last 24 Hours: Intake & Output 07/08/17 07/09/17 07/09/17 23:59 07:59 15:59 Intake Total 680 750 Balance 680 750 Med Orders - Current: Current Medications Hydrocodone Bitart/Acetaminophen ([place] 325-10 Mg) 1 tab PO Q6H PRN PRN Reason: Pain Last Admin: 07/09/17 05:26 Dose: 1 tab Aspirin (Aspirin) 81 mg PO DAILY [facility] Last Admin: 07/09/17 08:34 Dose: 81 mg Docusate Sodium (Colace) 100 mg PO DAILY [facility] Last Admin: 07/09/17 08:34 Dose: 100 mg Heparin Sodium (Porcine) (Heparin Sodium) 5,000 units SUBCUT Q12HR [facility] Last Admin: 07/09/17 08:33 Dose: 5,000 units Hydrochlorothiazide (Hydrochlorothiazide) 25 mg PO DAILY [facility] Last Admin: 07/09/17 08:34 Dose: 25 mg Lisinopril (Prinivil) 10 mg PO DAILY [facility] Last Admin: 07/09/17 08:34 Dose: 10 mg Ondansetron HCl (Zofran) 4 mg IVPUSH Q8H PRN PRN Reason: nausea Pantoprazole Sodium (Protonix) 40 mg PO DAILY@0700 [facility] Last Admin: 07/09/17 06:46 Dose: 40 mg Discontinued Medications Hydrocodone Bitart/Acetaminophen ([place] 325-10 Mg) 1 tab PO Q4H PRN PRN Reason: Pain Last Admin: 07/07/17 10:05 Dose: 1 tab Bisacodyl (Dulcolax) 10 mg RECTAL ONETIME ONE Stop: 07/08/17 15:11 Last Admin: 07/08/17 16:13 Dose: 10 mg Bupivacaine HCl (Marcaine 0.5%) Confirm Administered Dose 30 ml .ROUTE .STK-MED ONE Stop: 07/06/17 09:15 Last Admin: 07/06/17 11:16 Dose: 30 ml Cefazolin Sodium (Ancef) Confirm Administered Dose 2 gm .ROUTE .STK-MED ONE Stop: 07/06/17 07:30 Ephedrine Sulfate (Ephedrine Sulfate) Confirm Administered Dose 50 mg .ROUTE .STK-MED ONE Stop: 07/06/17 10:52 Fentanyl (Sublimaze) Confirm Administered Dose 250 mcg .ROUTE .STK-MED ONE Stop: 07/06/17 07:30 Fentanyl (Sublimaze) 50 mcg IVPUSH Q5M PRN PRN Reason: Pain Stop: 07/06/17 18:00 Last Admin: 07/06/17 12:17 Dose: 50 mcg Glycopyrrolate (Robinul) Confirm Administered Dose 0.6 mg .ROUTE .STK-MED ONE Stop: 07/06/17 10:53 Haloperidol Lactate (Haldol) 1 mg IVPUSH ONETIME ONE Stop: 07/06/17 10:30 Last Admin: 07/06/17 14:41 Dose: Not Given Hydromorphone HCl (Dilaudid) Confirm Administered Dose 0.5 mg .ROUTE .STK-MED ONE Stop: 07/06/17 10:25 Hydromorphone HCl (Dilaudid) 0.5 mg IVPUSH ASDIRECTED PRN PRN Reason: Severe Pain Stop: 07/06/17 12:00 Last Admin: 07/06/17 11:47 Dose: 0.5 mg Hydromorphone HCl (Dilaudid) Confirm Administered Dose 0.5 mg .ROUTE .STK-MED ONE Stop: 07/06/17 11:25 Hydromorphone HCl (Dilaudid) 0.5 mg IVPUSH ONETIME ONE Stop: 07/06/17 12:06 Last Admin: 07/06/17 14:41 Dose: Not Given Hydromorphone HCl (Dilaudid) 1 mg IVPUSH Q2H PRN PRN Reason: Pain Last Admin: 07/07/17 00:24 Dose: 1 mg Lactated Ringer's (Ringers, Lactated) 1,000 mls @ 125 mls/hr IV ASDIRECTED RUPAL Stop: 07/06/17 23:00 Last Admin: 07/06/17 09:05 Dose: 125 mls/hr Lactated Ringer's (Ringers, Lactated) Confirm Administered Dose 1,000 mls @ as directed .ROUTE .STK-MED ONE Stop: 07/06/17 07:30 Lidocaine HCl (Xylocaine-Mpf 1%) Confirm Administered Dose 4 mls @ as directed .ROUTE .STK-MED ONE Stop: 07/06/17 07:31 Metronidazole 500 mg/ Premix 100 mls @ 100 mls/hr IV ONETIME ONE Stop: 07/06/17 10:14 Last Admin: 07/06/17 14:41 Dose: Not Given Lactated Ringer's (Ringers, Lactated) 1,000 mls @ 100 mls/hr IV ASDIRECTED [facility] Last Admin: 07/06/17 14:48 Dose: 100 mls/hr Lactated Ringer's (Ringers, Lactated) 1,000 mls @ 50 mls/hr IV ASDIRECTED [facility] Last Admin: 07/07/17 05:17 Dose: 50 mls/hr Lidocaine/Sodium Bicarbonate (Buffered Lidocaine 1% In Ns 8.4%) 0.25 ml IDERM ONETIME PRN PRN Reason: Prior to IV Start Stop: 07/06/17 18:00 Magnesium Hydroxide (Milk Of Magnesia) 30 ml PO ONETIME ONE Stop: 07/08/17 17:41 Last Admin: 07/08/17 17:43 Dose: 30 ml Midazolam HCl (Versed 1 Mg/Ml) Confirm Administered Dose 2 mg .ROUTE .STK-MED ONE Stop: 07/06/17 07:30 Neostigmine Methylsulfate (Neostigmine Methylsulfate) Confirm Administered Dose 10 mg .ROUTE .STK-MED ONE Stop: 07/06/17 10:53 Ondansetron HCl (Zofran) Confirm Administered Dose 4 mg .ROUTE .STK-MED ONE Stop: 07/06/17 07:30 Propofol (Diprivan 20 Ml) Confirm Administered Dose 400 mg .ROUTE .STK-MED ONE Stop: 07/06/17 07:30 Rocuronium [place] (Zemuron) Confirm Administered Dose 50 mg .ROUTE .STK-MED ONE Stop: 07/06/17 07:30 Sodium Chloride (Saline Flush) 10 ml FLUSH ASDIRECTED PRN PRN Reason: Keep Vein Open Stop: 07/06/17 18:00 - Problem List Review Problem List Initiated/Reviewed/Updated: Yes - My Orders Last 24 Hours: Active Orders 24 hr Category Date Time Status Enema [RC] ASDIRECTED Care 07/08/17 15:10 Active Docusate Sodium [Colace] Med 07/08/17 16:15 Active 100 mg PO DAILY Medication Orders Hydrocodone Bitart/Acetaminophen ([place] 325-10 Mg) 1 tab PO Q6H PRN PRN Reason: Pain Last Admin: 07/09/17 05:26 Dose: 1 tab Admin: 07/08/17 23:02 Dose: 1 tab Admin: 07/08/17 16:33 Dose: 1 tab Admin: 07/08/17 10:18 Dose: 1 tab Admin: 07/08/17 04:01 Dose: 1 tab Admin: 07/07/17 21:54 Dose: 1 tab Admin: 07/07/17 16:21 Dose: 1 tab Aspirin (Aspirin) 81 mg PO DAILY [facility] Last Admin: 07/09/17 08:34 Dose: 81 mg Admin: 07/08/17 09:29 Dose: 81 mg Admin: 07/07/17 08:18 Dose: 81 mg Docusate Sodium (Colace) 100 mg PO DAILY [facility] Last Admin: 07/09/17 08:34 Dose: 100 mg Admin: 07/08/17 16:33 Dose: 100 mg Heparin Sodium (Porcine) (Heparin Sodium) 5,000 units SUBCUT Q12HR [facility] Last Admin: 07/09/17 08:33 Dose: 5,000 units Admin: 07/08/17 20:26 Dose: 5,000 units Admin: 07/08/17 09:29 Dose: 5,000 units Admin: 07/07/17 21:54 Dose: 5,000 units Admin: 07/07/17 10:05 Dose: 5,000 units Hydrochlorothiazide (Hydrochlorothiazide) 25 mg PO DAILY [facility] Last Admin: 07/09/17 08:34 Dose: 25 mg Admin: 07/08/17 09:29 Dose: 25 mg Admin: 07/07/17 08:18 Dose: 25 mg Lisinopril (Prinivil) 10 mg PO DAILY [facility] Last Admin: 07/09/17 08:34 Dose: 10 mg Admin: 07/08/17 09:25 Dose: 10 mg Admin: 07/07/17 08:18 Dose: 10 mg Ondansetron HCl (Zofran) 4 mg IVPUSH Q8H PRN PRN Reason: nausea Pantoprazole Sodium (Protonix) 40 mg PO DAILY@0700 [facility] Last Admin: 07/09/17 06:46 Dose: 40 mg Admin: 07/08/17 06:58 Dose: 40 mg Admin: 07/07/17 08:18 Dose: 40 mg - Plan Plan (Free Text/Narrative):: discharge dictated ABILIO
--- NOTE | 2017-07-10 04:26 | DISCH ---
ADMISSION DATE: 07/06/2017 DISCHARGE DATE: 07/09/2017 HISTORY: This is a 76-year-old female who presented with a large ventral hernia. This occurred after open appendectomy that was done on 01/25/2017. The postop complication was that of wound infection, and about early this year, she developed a large ventral hernia at the incision site. It is symptomatic and she is here for repair. PAST MEDICAL HISTORY: The patient's medical problems are history of elevated blood pressure and is on hydrochlorothiazide and lisinopril. 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 PHYSICAL EXAMINATION: GENERAL: At the time of admission, revealed a mildly obese female with vital signs. EYES: Sclerae white. Extraocular muscle motion normal. ORAL CAVITY: Healthy. NECK: Supple. LUNGS: Clear. HEART: Tones regular. ABDOMEN: Large about 10 cm ventral hernia over the right lower quadrant incision. HOSPITAL COURSE: The patient was brought to the operating room and underwent a laparoscopic ventral hernia with mesh. The patient's postoperative course was that of some abdominal distention and pain, which was controlled with pain medication. This improved where she has weaned off her Dilaudid and continued on oral hydrocodone. She did have some abdominal distention, but resolved when she had a bowel movement today, felt to be ready to be discharged on oral pain medication resuming her regular medications lisinopril, hydrochlorothiazide, aspirin, and her vitamins. The patient was also added a bowel softener and Lortab 5/325 one p.o. q.i.d. p.r.n. pain. RECOMMENDATION: No lifting or pushing or pulling. Diet regular and I will stop her subcu heparin that has been given here during her hospital stay along with the SCDs. CONDITION ON DISCHARGE: Improved. DISCHARGE DIAGNOSIS: Large ventral hernia status post laparoscopic repair. FOLLOW-UP: She will follow up in the clinic and see me next week. FINAL DIAGNOSIS: DISCHARGE MEDICATIONS: DIET: ACTIVITY: MMODAL /[id number]
== END 2017-07-09 11:14 | disposition home or self-care (01) ==
LOC: JD.SDS 08:03 → JD.MS 13:03
PROVIDERS: ADMIT Surgery; ATTEND Surgery
DX: K43.9 Ventral hernia without obstruction or gangrene (principal); H52.209 Unspecified astigmatism, unspecified eye; M19.90 Unspecified osteoarthritis, unspecified site; I10 Essential (primary) hypertension; H35.30 Unspecified macular degeneration; M81.0 Age-related osteoporosis without current pathological fracture; K21.9 Gastro-esophageal reflux disease without esophagitis; E66.9 Obesity, unspecified; Z68.30 Body mass index [BMI] 30.0-30.9, adult; Z86.718 Personal history of other venous thrombosis and embolism; Z90.49 Acquired absence of other specified parts of digestive tract; Z98.890 Other specified postprocedural states; Z98.51 Tubal ligation status; Z88.5 Allergy status to narcotic agent; Z87.891 Personal history of nicotine dependence; Z79.899 Other long term (current) drug therapy
CPT/HCPCS: 49652; 96372; A9270; C1781; G0378; J0690; J1170; J1644; J2405; J2710; J3010; J3490; J7120; 00752; J2001; J2250; J2704

== ENCOUNTER → 2020-10-16 | Day surgery (SDC) | payer MEDICARE, OTHER ==
[2020-10-16] MEDS: Brimonidine 0.2% Ophth Soln 5 ML Bottle EYELF SCH ×2 (11:05→12:06)
[2020-10-16] MEDS: Phenylephrine 2.5% Ophth Soln 2 ML Bot EYELF SCH ×2 (11:10→11:21)
[2020-10-16] MEDS: Tropicamide 1% Ophth Soln 15 ML Bottle EYELF SCH ×2 (11:16→11:25)
[2020-10-16 12:33] VITALS: BP 118/71; PULSE 66
== END ==
LOC: JD.SDS 10:20
PROVIDERS: ATTEND Ophthalmology
DX: H26.492 Other secondary cataract, left eye (principal); H35.363 Drusen (degenerative) of macula, bilateral; H16.223 Keratoconjunctivitis sicca, not specified as Sjogren's, bilateral; H02.834 Dermatochalasis of left upper eyelid; H02.831 Dermatochalasis of right upper eyelid; I10 Essential (primary) hypertension; Z98.890 Other specified postprocedural states; Z88.8 Allergy status to other drugs, medicaments and biological substances; Z96.1 Presence of intraocular lens

== ENCOUNTER 2022-08-04 13:54 | Emergency (ER) | payer MEDICARE, OTHER ==
[2022-08-04] MEDS ORDERED: Sodium Chloride 0.9% 10 ML Syringe FLUSH PRN (14:15)
[2022-08-04 15:12] LABS: INR 1.11; PROTHROMBIN TIME 11.8 SECONDS (9.7-12.0)
[2022-08-04 16:48] VITALS: BP 150/78; PULSE 70
== END 2022-08-04 16:25 | disposition home or self-care (01) ==
LOC: JD.ED 13:54
DX: K92.2 Gastrointestinal hemorrhage, unspecified (principal); I10 Essential (primary) hypertension; K21.9 Gastro-esophageal reflux disease without esophagitis; E66.9 Obesity, unspecified; Z68.35 Body mass index [BMI] 35.0-35.9, adult; Z88.5 Allergy status to narcotic agent; Z88.8 Allergy status to other drugs, medicaments and biological substances; Z79.899 Other long term (current) drug therapy
CPT/HCPCS: 36415; 84484; 85610; 93005; 99285; J3490; 93010; 99283

== ENCOUNTER 2025-01-30 13:40 | Emergency (ER) | payer MEDICARE, OTHER ==
[2025-01-30] MEDS: Acetaminophen/HYDROcodone 325-5 MG Tab PO ONE (15:24)
[2025-01-30 15:50] VITALS: BP 165/94; PULSE 61
== END 2025-01-30 15:30 | disposition home or self-care (01) ==
LOC: JD.ED 13:40
DX: S72.24XA Nondisplaced subtrochanteric fracture of right femur, initial encounter for closed fracture (principal); I10 Essential (primary) hypertension; K21.9 Gastro-esophageal reflux disease without esophagitis; E66.9 Obesity, unspecified; Z88.8 Allergy status to other drugs, medicaments and biological substances; Z79.899 Other long term (current) drug therapy; Z90.49 Acquired absence of other specified parts of digestive tract; W01.0XXA Fall on same level from slipping, tripping and stumbling without subsequent striking against object, initial encounter
CPT/HCPCS: 73502; 73552; 99283; A9270